=== PATIENT | female | born 1965 | race Caucasian/White ===

== ENCOUNTER 2016-04-30 17:29 | Inpatient (IN) | payer OTHER ==
[~2016-04-30] VITALS: Ht 157.4 cm; Wt 132.3 kg
--- NOTE | ~2016-04-30 | WRIGHTHP ---
[place], [place] PATIENT HISTORY AND PHYSICAL EXAM NAME: JEREMIAH PEARSON [facility] #: [id number] UNIT #: [id number] ROOM: 402 DOCTOR: OBED MEEHAN MD BIRTHDATE: [birth year] DOS: The patient was admitted to hospital with a history of acute difficulty in breathing and cough. She is a 50-year-old female who came to emergency department with increasing shortness of breath and cough and nasal congestion, and the patient was treating as outpatient with antibiotic. She went to visit emergency department at [facility] and was put on Zithromax but instead of feeling better, the patient was feeling worse. So, she came to the emergency department where on investigation, was found to be having pneumonia with acute respiratory difficulty and needed to be admitted to the hospital. The patient has previous history of cardiac catheterization and history of atherosclerotic heart disease. 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 MEDICATIONS: The patient is taking following medications at present, Paxil 10 mg daily, carvedilol (Coreg) 12.5 mg twice daily, Lasix 40 mg daily, Zestril 10 mg daily, Prilosec 40 mg daily, Zithromax 250 mg daily, aerosol treatment with albuterol 2 puffs q.4 hours p.r.n. and lithium carbonate 300 mg twice daily, Ativan 0.5 mg p.r.n. and Lipitor 10 mg daily. PHYSICAL EXAMINATION GENERAL: The patient is conscious, alert, and oriented. VITAL SIGNS: She is 5 foot 2 inches tall, weighing 285 pounds, her body mass is 56, and blood pressure is 126/64, pulse 70, respirations 16, temperature 97.9. HEENT: She is having some congestion of nose and throat. Ears are normal. Trachea central. NECK: Veins are not distended. HEART: Regular. No murmur or thrills. LUNGS: Showing bilateral wheezing with some crepitation. ABDOMEN: Soft. Liver and spleen not palpable. No area of tenderness. No mass palpable. LABORATORY DATA: CBC showed white count 8900, hemoglobin 11.9, and hematocrit 37.5. Comprehensive metabolic profile showed glucose 121 and GFR 59; other values are normal. Chest x-ray shows nodular interstitial infiltrate in the right mid to upper lung zone laterally, new from the previous study; appearance of this infiltrate is not typical of usual bacterial pneumonia, but rather atypical pneumonitis. CBC today shows white count 7600, hemoglobin 11.4, and hematocrit 37.2. Basic metabolic profile showed glucose 229; other values are normal. DIAGNOSES: Noted interstitial pneumonia of the right upper and mid lobe, acute bronchitis, hypertension and depression, gastroesophageal reflux disease syndrome, massive obesity, hyperlipidemia. [place], [place] PATIENT HISTORY AND PHYSICAL EXAM [id number] UNIT #: [id number] ROOM: [facility] DOCTOR: OBED MEEHAN MD BIRTHDATE: [birth year] OBED MEEHAN MD CM:HISPHYS:PATIENT HISTORY AND PHYSICAL EXAMINATION [id number] [id number] OBED MEEHAN MD 06/09/16 1317 interface
--- NOTE | ~2016-04-30 | PR ---
[place], [place] PROGRESS NOTE NAME: JEREMIAH PEARSON UNIT #: [id number] ROOM: 402 DOCTOR: OBED MEEHAN MD BIRTHDATE: [birth year] DOS: 05/07/2016 SUBJECTIVE: The patient has been admitted to the hospital with Legionella pneumonia and she is feeling better. She is being discharged today home. OBJECTIVE: VITAL SIGNS: Blood pressure 132/78, pulse 65, respirations 22, temperature 97.9. CHEST: Has an occasional wheeze. HEART: Regular. ABDOMEN: Soft. The patient is feeling good. She will be followed up by Dr. Escobedo in the office on Monday. OBED MEEHAN MD CM:PNTRANS [id number] OBED MEEHAN MD 06/09/16 1318 interface
[~2016-04-30 17:29] MED LIST: ACETAMINOPHEN500 M1 PO; ALBUTEROL0.09 MG/A2 INH; ANAPROX DS550 MG PO; ATIVAN0.5 MG PO; BACTRIM DS 8001 TA1 PO; CARAFATE1 G1 PO; CARVEDILOL25 MG PO; CEFTIN500 MG PO; CIPRO500 MG PO; CIPRODEX 0.3%-7.5 ML OT; CIPROFLOXACIN500 MG PO; CLARITIN-D 12 H1 TAB PO; CLARITIN10 MG PO; COREG12.5 MG PO; COREG25 MG PO; COUGH & COLD1 TAB; COUGH PO; CYCLOBENZAPRINE10 MG PO; FIORICET 325 MG1 TAB PO; FLAGYL 500 MG500 MG IV; FLAGYL500 MG PO; FLEXERIL10 MG PO; FUROSEMIDE40 MG PO; Flagyl500 MG PO; HYDROCODONE BIT1 T11 PO; KEFLEX500 MG PO; LAMICTAL200 MG PO; LAMOTRIGINE200 MG PO; LASIX40 MG PO; LEVAQUIN750 MG PO; LEVOFLOXACIN500 MG PO; LITHATE5 M1 PO; LITHIUM CARBON300 MG PO; MEDROL DOSEPAK4 MG PO; PAROXETIN10 MG PO; PAROXETINE HCL10 MG PO; PAXIL10 MG PO; PERCOCET 325 MG1 TA2 PO; PHENERGAN25 M1 PO; PHENERGAN25 MG RC; PREDNICOT20 MG PO; PREDNISONE10 MG PO; PREVACID30 M1; PREVACID30 M1 PO; PRILOSEC40 MG PO; RHINOCORT0.032 MG/1 NS; ROXICODONE5 MG PO; STOOL SOFTENER100 MG PO; SYMBICORT1 AE1 INH; TRIMOX500 MG PO; TYLENOL325 M1 PO; TYLENOL500 MG PO; ULTRAM50 MG PO; VENTOLIN H0.09 MG/AC INH; VICO10300 PO; VOLTAREN50 M1 PO; ZESTRIL5 MG PO; ZITHROMAX Z PA250 MG PO; ZOFRAN ODT4 MG SL; Zofran4 MG PO; [UNRECOGNIZED DRUG - OTHER]
[2016-04-30 17:36] VITALS: BP 150/79
[2016-04-30] MEDS ORDERED: ZITHROMAX250 MG PO (17:36)
[2016-04-30] MEDS ORDERED: VENTOLIN H0.09 MG/AC INH (17:37)
[2016-04-30] MEDS ORDERED: BENZONATATE200 MG PO (17:38)
[2016-04-30] MEDS ORDERED: LITHIUM CARB300 MG PO (17:39)
[2016-04-30] MEDS ORDERED: ATIVAN0.5 MG PO (17:40)
[2016-04-30] MEDS ORDERED: ATORVASTATIN CA10 M1 PO (17:40)
[2016-04-30 18:08] LABS: BASO % 0.3 % (0.0-1.0); EOS # 0.2 10*3/uL (0.0-0.4); EOS % 1.9 % (1.0-4.0); HEMATOCRIT 37.5 % (37.0-47.0); HEMOGLOBIN 11.9 g/dl (12.0-16.0); IG # 0.1 10*3/uL (0.0-0.1); LYMPH # 1.3 10*3/uL (1.3-4.4); LYMPH % 14.6 % (27.0-41.0); MEAN CELL VOLUME 81.5 fl (81.0-99.0); MEAN CORPUSCULAR HGB 25.9 pg (27.0-31.0); MEAN CORPUSCULAR HGB CONC 31.7 g/dl (33.0-37.0); MEAN PLATELET VOLUME 9.2 fl (9.6-12.3); MONO # 0.8 10*3/uL (0.1-1.0); MONO % 8.5 % (3.0-9.0); NEUT # 6.6 10*3/uL (2.3-7.9); PLATELET COUNT AUTOMATED 280 10*3/uL (130-400); RED CELL DISTRI WIDTH 14.1 % (0-14.5); WHITE BLOOD COUNT 8.9 10*3/uL (4.8-10.8)
[2016-04-30 18:25] LABS: ALBUMIN 3.6 gm/dl (3.1-4.5); ALKALINE PHOSPHATASE 81 U/L (45-117); BILIRUBIN, TOTAL 0.6 mg/dl (0.2-1.0); BUN 11 mg/dl (7-24); CARBON DIOXIDE 28 mmol/L (21-32); CHLORIDE 105 mmol/L (98-107); EST GLOM FILT AFRICAN AMERICAN > 60 ml/min; GLUCOSE 121 mg/dL (65-99); SGOT/AST 22 IU/L (3-35); SGPT/ALT 32 U/L (12-78); SODIUM 140 mmol/L (136-145); TOTAL PROTEIN 7.6 gm/dL (6.4-8.2)
[2016-04-30 19:11] VITALS: BP 148/90
[2016-04-30 20:15] VITALS: BP 148/80
[2016-04-30] MEDS ORDERED: LITHIUM CARBON300 MG PO (21:43)
[2016-05-01] VITALS: BP 107/58
[2016-05-01 07:35] LABS: BASO % 0.3 % (0.0-1.0); HEMATOCRIT 37.2 % (37.0-47.0); HEMOGLOBIN 11.4 g/dl (12.0-16.0); IG # 0.1 10*3/uL (0.0-0.1); LYMPH # 0.9 10*3/uL (1.3-4.4); LYMPH % 11.2 % (27.0-41.0); MEAN CELL VOLUME 83.6 fl (81.0-99.0); MEAN CORPUSCULAR HGB 25.6 pg (27.0-31.0); MEAN CORPUSCULAR HGB CONC 30.6 g/dl (33.0-37.0); MEAN PLATELET VOLUME 9.9 fl (9.6-12.3); MONO # 0.2 10*3/uL (0.1-1.0); MONO % 2.2 % (3.0-9.0); NEUT # 6.4 10*3/uL (2.3-7.9); PLATELET COUNT AUTOMATED 248 10*3/uL (130-400); RED BLOOD COUNT 4.45 10*6/uL (4.10-5.10); RED CELL DISTRI WIDTH 14.1 % (0-14.5); WHITE BLOOD COUNT 7.6 10*3/uL (4.8-10.8)
[2016-05-01 07:55] LABS: BUN 14 mg/dl (7-24); CARBON DIOXIDE 26 mmol/L (21-32); CHLORIDE 106 mmol/L (98-107); EST GLOM FILT AFRICAN AMERICAN > 60 ml/min; GLUCOSE 229 mg/dL (65-99); POTASSIUM 4.4 mmol/L (3.5-5.1); SODIUM 140 mmol/L (136-145)
[2016-05-01 08:00] VITALS: BP 126/64
[2016-05-01 16:00] VITALS: BP 116/60
[2016-05-01 20:00] VITALS: BP 129/78
[2016-05-02] VITALS: BP 132/66
[2016-05-02 08:00] VITALS: BP 126/70
[2016-05-02 16:00] VITALS: BP 150/70
[2016-05-02 20:00] VITALS: BP 139/75
[2016-05-03] VITALS: BP 112/64
[2016-05-03 06:13] LABS: ALBUMIN 3.3 gm/dl (3.1-4.5); ALKALINE PHOSPHATASE 63 U/L (45-117); BILIRUBIN, TOTAL 0.4 mg/dl (0.2-1.0); CARBON DIOXIDE 27 mmol/L (21-32); CHLORIDE 103 mmol/L (98-107); EST GLOM FILT AFRICAN AMERICAN > 60 ml/min; GLUCOSE 282 mg/dL (65-99); POTASSIUM 4.6 mmol/L (3.5-5.1); SGOT/AST 10 IU/L (3-35); SGPT/ALT 23 U/L (12-78); SODIUM 139 mmol/L (136-145); TOTAL PROTEIN 7.3 gm/dL (6.4-8.2)
[2016-05-03 06:14] LABS: BUN 25 mg/dl (7-24)
[2016-05-03 06:20] LABS: BASO % 0.2 % (0.0-1.0); HEMATOCRIT 37.3 % (37.0-47.0); HEMOGLOBIN 11.3 g/dl (12.0-16.0); IG # 0.2 10*3/uL (0.0-0.1); LYMPH # 1.3 10*3/uL (1.3-4.4); LYMPH % 11.9 % (27.0-41.0); MEAN CELL VOLUME 83.1 fl (81.0-99.0); MEAN CORPUSCULAR HGB 25.2 pg (27.0-31.0); MEAN CORPUSCULAR HGB CONC 30.3 g/dl (33.0-37.0); MEAN PLATELET VOLUME 9.8 fl (9.6-12.3); MONO # 0.3 10*3/uL (0.1-1.0); MONO % 2.5 % (3.0-9.0); NEUT # 9.1 10*3/uL (2.3-7.9); NEUT % 83.3 % (47.0-73.0); PLATELET COUNT AUTOMATED 300 10*3/uL (130-400); RED BLOOD COUNT 4.49 10*6/uL (4.10-5.10); RED CELL DISTRI WIDTH 13.9 % (0-14.5); WHITE BLOOD COUNT 10.9 10*3/uL (4.8-10.8)
[2016-05-03 08:00] VITALS: BP 112/68
[2016-05-03 09:43] LABS: BILIRUBIN NEGATIVE (NEGATIVE); BLOOD NEGATIVE (NEGATIVE); CLARITY CLEAR (CLEAR); COLOR YELLOW (YELLOW); GLUCOSE 1+ (NEGATIVE); KETONE NEGATIVE (NEGATIVE); LEUKO ESTERASE NEGATIVE (NEGATIVE); NITRITE NEGATIVE (NEGATIVE); PROTEIN NEGATIVE (NEGATIVE); SPECIFIC GRAVITY 1.015 (1.005-1.030); UROBILINOGEN 0.2 E.U./dl (0.2-1.0)
[2016-05-03 09:51] LABS: BACTERIA TRACE; URINE REFLEX COMMENT NO (NO)
[2016-05-03 16:00] VITALS: BP 156/84
[2016-05-03 20:56] VITALS: BP 123/72
[2016-05-04] VITALS: BP 113/58; BP 132/76
[2016-05-04 07:30] VITALS: BP 130/70
[2016-05-04 12:11] LABS: BILIRUBIN NEGATIVE (NEGATIVE); BLOOD NEGATIVE (NEGATIVE); CLARITY CLEAR (CLEAR); COLOR YELLOW (YELLOW); GLUCOSE 2+ (NEGATIVE); KETONE NEGATIVE (NEGATIVE); LEUKO ESTERASE NEGATIVE (NEGATIVE); NITRITE NEGATIVE (NEGATIVE); PROTEIN NEGATIVE (NEGATIVE); UROBILINOGEN 0.2 E.U./dl (0.2-1.0)
[2016-05-04 12:41] LABS: BACTERIA TRACE; RBC 0-2 rbc/hpf (0-2); URINE REFLEX COMMENT NO (NO)
[2016-05-04 16:00] VITALS: BP 142/83
[2016-05-05] VITALS: BP 149/75
[2016-05-05 08:00] VITALS: BP 136/70
[2016-05-05 10:20] LABS: HEMATOCRIT 36.9 % (37.0-47.0); MEAN CELL VOLUME 79.5 fl (81.0-99.0); MEAN CORPUSCULAR HGB 25.9 pg (27.0-31.0); MEAN CORPUSCULAR HGB CONC 32.5 g/dl (33.0-37.0); MEAN PLATELET VOLUME 9.2 fl (9.6-12.3); NUCLEATED RED BLOOD CELL 0.1 % (0.0-0.0); PLATELET COUNT AUTOMATED 350 10*3/uL (130-400); RED BLOOD COUNT 4.64 10*6/uL (4.10-5.10); RED CELL DISTRI WIDTH 13.8 % (0-14.5); WHITE BLOOD COUNT 15.3 10*3/uL (4.8-10.8)
[2016-05-05 10:47] LABS: ATYPICAL LYMPHS 1 % (0-0); LYMPHOCYTE # 4.9 10*3/uL (1.3-4.4); METAMYELOCYTES 2 % (0-0); MONOCYTE # 1.7 10*3/uL (0.1-1.0); MYELOCYTES 2 % (0-0); NEUTROPHIL # 8.1 10*3/uL (2.3-7.9); NEUTROPHILS 53 % (47-73); PLATELET SUFFICIENCY NORMAL (NORMAL); TOTAL CELLS COUNTED 100 #CELLS
[2016-05-05 11:02] LABS: BUN 29 mg/dl (7-24); CARBON DIOXIDE 29 mmol/L (21-32); CHLORIDE 100 mmol/L (98-107); EST GLOM FILT AFRICAN AMERICAN > 60 ml/min; GLUCOSE 244 mg/dL (65-99); POTASSIUM 3.7 mmol/L (3.5-5.1); SODIUM 137 mmol/L (136-145)
[2016-05-05 12:00] VITALS: BP 124/67
[2016-05-05 16:00] VITALS: BP 117/66
[2016-05-05 20:00] VITALS: BP 104/44
[2016-05-05 20:09] LABS: LEGIONELLA PNEUMOPHILA ABS <0.91 OD ratio (0.00-0.90)
[2016-05-06] VITALS: BP 108/55
[2016-05-06 07:38] LABS: HEMATOCRIT 39.3 % (37.0-47.0); HEMOGLOBIN 12.5 g/dl (12.0-16.0); MEAN CORPUSCULAR HGB 25.8 pg (27.0-31.0); MEAN CORPUSCULAR HGB CONC 31.8 g/dl (33.0-37.0); MEAN PLATELET VOLUME 9.9 fl (9.6-12.3); PLATELET COUNT AUTOMATED 305 10*3/uL (130-400); RED BLOOD COUNT 4.85 10*6/uL (4.10-5.10); WHITE BLOOD COUNT 14.1 10*3/uL (4.8-10.8)
[2016-05-06 08:00] VITALS: BP 136/66
[2016-05-06 08:03] LABS: LYMPHOCYTE # 1.1 10*3/uL (1.3-4.4); METAMYELOCYTES 1 % (0-0); MONOCYTE # 0.6 10*3/uL (0.1-1.0); MYELOCYTES 2 % (0-0); NEUTROPHILS 85 % (47-73); PLATELET SUFFICIENCY NORMAL (NORMAL); TOTAL CELLS COUNTED 100 #CELLS
[2016-05-06 08:11] LABS: BUN 25 mg/dl (7-24); CARBON DIOXIDE 29 mmol/L (21-32); CHLORIDE 99 mmol/L (98-107); EST GLOM FILT AFRICAN AMERICAN > 60 ml/min; GLUCOSE 281 mg/dL (65-99); POTASSIUM 4.5 mmol/L (3.5-5.1); SODIUM 137 mmol/L (136-145)
[2016-05-06] MEDS ORDERED: VENTOLIN H0.09 MG/AC INH (12:46)
[2016-05-06] MEDS ORDERED: MUCINEX ER600 MG PO (15:35)
[2016-05-06] MEDS ORDERED: AEROECLIPSE NEB1 DEV INH (15:35)
[2016-05-06] MEDS ORDERED: DUONEB 3 MG/3 ML3 M1 NEB (15:35)
[2016-05-06] MEDS ORDERED: AZITHROMYCIN500 M2 PO (15:35)
[2016-05-06] MEDS ORDERED: ASMANEX HF200 MCG/Ac INH (15:35)
[2016-05-06 16:00] VITALS: BP 130/76
[2016-05-07] VITALS: BP 96/58
[2016-05-07 00:03] LABS: PARAINFLUENZA 1 CF 1:16 (Neg:<1:8); PARAINFLUENZA 2 CF Negative (Neg:<1:8); PARAINFLUENZA 3 CF 1:32 (Neg:<1:8)
[2016-05-07 08:00] VITALS: BP 138/78
[2016-05-08 00:12] LABS: INFLUENZA B Negative (Negative); METAPNEUMOVIRUS Negative (Negative)
[2016-05-11 08:24] LABS: ORGANISM ID Not indicated. (.); SPECIMEN SOURCE Urine (.); STREPTOCOCCUS PNEUMONIAE AG Negative (Negative)
== END 2016-05-07 12:00 | disposition home or self-care (01) | DRG 177 ==
LOC: ED 17:29 → 4E 19:08 → EDHOLD 19:08 → 4E 19:40
PROVIDERS: Hospitalist; Internal Medicine; Internal Medicine Hospice and Palliative Medicine; Registered Nurse
PROC: 02HV33Z Insertion of Infusion Device into Superior Vena Cava, Percutaneous Approach (ICD-10-PCS; principal; 2016-05-05)
PROC: B5181ZA Fluoroscopy of Superior Vena Cava using Low Osmolar Contrast, Guidance (ICD-10-PCS; 2016-05-05)
DX: A48.1 Legionnaires' disease (principal); J96.21 Acute and chronic respiratory failure with hypoxia; K76.0 Fatty (change of) liver, not elsewhere classified; J44.0 Chronic obstructive pulmonary disease with (acute) lower respiratory infection; Z68.43 Body mass index [BMI] 50.0-59.9, adult; J44.1 Chronic obstructive pulmonary disease with (acute) exacerbation; K29.50 Unspecified chronic gastritis without bleeding; J20.9 Acute bronchitis, unspecified; I10 Essential (primary) hypertension; F32.9 Major depressive disorder, single episode, unspecified; K21.9 Gastro-esophageal reflux disease without esophagitis; E78.5 Hyperlipidemia, unspecified; K57.90 Diverticulosis of intestine, part unspecified, without perforation or abscess without bleeding; E66.01 Morbid (severe) obesity due to excess calories; D64.9 Anemia, unspecified; R73.9 Hyperglycemia, unspecified; Z88.1 Allergy status to other antibiotic agents; Z88.8 Allergy status to other drugs, medicaments and biological substances; Z91.09 Other allergy status, other than to drugs and biological substances; Z79.899 Other long term (current) drug therapy; Z82.49 Family history of ischemic heart disease and other diseases of the circulatory system; Z83.3 Family history of diabetes mellitus; Z82.3 Family history of stroke; Z90.710 Acquired absence of both cervix and uterus; Z83.6 Family history of other diseases of the respiratory system; Z98.890 Other specified postprocedural states

== ENCOUNTER → 2016-07-22 | Outpatient (CLI) | payer OTHER ==
[~2016-07-22] MED LIST changes: +AEROECLIPSE NEB1 DEV INH; +ASMANEX HF200 MCG/Ac INH; +ATORVASTATIN CA10 M1 PO; +AZITHROMYCIN500 M2 PO; +BENZONATATE200 MG PO; +DUONEB 3 MG/3 ML3 M1 NEB; +LITHIUM CARB300 MG PO; +MUCINEX ER600 MG PO; +ZITHROMAX250 MG PO
[2016-07-22 11:42] LABS: BASO # 0.1 10*3/uL (0.0-0.1); BASO % 0.5 % (0.0-1.0); EOS # 0.3 10*3/uL (0.0-0.4); EOS % 2.6 % (1.0-4.0); HEMATOCRIT 38.5 % (37.0-47.0); HEMOGLOBIN 12.2 g/dl (12.0-16.0); IG # 0.1 10*3/uL (0.0-0.1); LYMPH % 20.1 % (27.0-41.0); MEAN CELL VOLUME 81.4 fl (81.0-99.0); MEAN CORPUSCULAR HGB 25.8 pg (27.0-31.0); MEAN CORPUSCULAR HGB CONC 31.7 g/dl (33.0-37.0); MEAN PLATELET VOLUME 9.3 fl (9.6-12.3); MONO # 0.5 10*3/uL (0.1-1.0); MONO % 4.9 % (3.0-9.0); NEUT # 7.1 10*3/uL (2.3-7.9); NEUT % 71.4 % (47.0-73.0); PLATELET COUNT AUTOMATED 314 10*3/uL (130-400); RED BLOOD COUNT 4.73 10*6/uL (4.10-5.10); RED CELL DISTRI WIDTH 15.2 % (0-14.5); WHITE BLOOD COUNT 9.9 10*3/uL (4.8-10.8)
== END | disposition home or self-care (01) ==
LOC: LAB 11:17
PROVIDERS: Internal Medicine
DX: Z01.818 Encounter for other preprocedural examination (principal); D69.3 Immune thrombocytopenic purpura; I82.409 Acute embolism and thrombosis of unspecified deep veins of unspecified lower extremity; J45.909 Unspecified asthma, uncomplicated; E11.9 Type 2 diabetes mellitus without complications; I10 Essential (primary) hypertension; Z79.899 Other long term (current) drug therapy; Z95.810 Presence of automatic (implantable) cardiac defibrillator

== ENCOUNTER → 2017-02-05 | Outpatient (CLI) | payer OTHER ==
[2017-02-05 09:26] LABS: BASO # 0.1 10*3/uL (0.0-0.1); BASO % 0.5 % (0.0-1.0); EOS # 0.2 10*3/uL (0.0-0.4); EOS % 2.3 % (1.0-4.0); HEMATOCRIT 36.1 % (37.0-47.0); HEMOGLOBIN 11.4 g/dl (12.0-16.0); LYMPH # 1.7 10*3/uL (1.3-4.4); LYMPH % 18.2 % (27.0-41.0); MEAN CORPUSCULAR HGB 24.3 pg (27.0-31.0); MEAN CORPUSCULAR HGB CONC 31.6 g/dl (33.0-37.0); MEAN PLATELET VOLUME 9.7 fl (9.6-12.3); MONO # 0.5 10*3/uL (0.1-1.0); MONO % 5.4 % (3.0-9.0); NEUT # 6.9 10*3/uL (2.3-7.9); NEUT % 73.2 % (47.0-73.0); PLATELET COUNT AUTOMATED 312 10*3/uL (130-400); RED BLOOD COUNT 4.69 10*6/uL (4.10-5.10); RED CELL DISTRI WIDTH 15.8 % (0-14.5); WHITE BLOOD COUNT 9.4 10*3/uL (4.8-10.8)
[2017-02-05 09:48] LABS: ALBUMIN 3.6 gm/dl (3.1-4.5); ALKALINE PHOSPHATASE 70 U/L (45-117); BILIRUBIN, DIRECT 0.1 mg/dL (0.0-0.2); BUN 13 mg/dl (7-24); CHLORIDE 105 mmol/L (98-107); CHOLESTEROL 148 mg/dL (<200); CREATININE 0.88 mg/dL (0.55-1.02); FREE T4 1.14 ng/dl (0.76-1.46); HDL CHOLESTEROL 41 mg/dl (40-60); LDL CHOLESTEROL 57 mg/dL (9-159); POTASSIUM 4.3 mmol/L (3.5-5.1); SGOT/AST 14 IU/L (3-35); SGPT/ALT 31 U/L (12-78); SODIUM 139 mmol/L (136-145); T3 UPTAKE 35 % (31-39); TOTAL PROTEIN 7.5 gm/dL (6.4-8.2); TRIGLYCERIDES 252 mg/dl (<150); VLDL CHOLESTEROL 50 mg/dL (6-40)
== END | disposition home or self-care (01) ==
LOC: LAB 08:46
PROVIDERS: Internal Medicine
DX: J45.909 Unspecified asthma, uncomplicated (principal); E55.9 Vitamin D deficiency, unspecified; Z79.899 Other long term (current) drug therapy; Z95.0 Presence of cardiac pacemaker

== ENCOUNTER 2017-04-01 11:39 | Emergency (ER) | payer OTHER ==
[2017-04-01 11:47] VITALS: BP 160/100
[2017-04-01] MEDS ORDERED: CLARITIN10 MG PO (15:01)
[2017-04-01] MEDS ORDERED: PREDNISONE10 MG PO (15:01)
[2017-04-01] MEDS ORDERED: FLONASE ALLERG9.9 ML NAS (15:01)
[2017-04-01] MEDS ORDERED: ROBITUSSIN DM 105 ML PO (15:01)
[2017-04-01] MEDS ORDERED: Tobrex Ophth S2.5 ML OPH (15:01)
== END 2017-04-01 15:10 | disposition home or self-care (01) ==
LOC: ED 11:39
DX: J20.9 Acute bronchitis, unspecified (principal); J44.9 Chronic obstructive pulmonary disease, unspecified; I10 Essential (primary) hypertension; K21.9 Gastro-esophageal reflux disease without esophagitis; E66.01 Morbid (severe) obesity due to excess calories; Z68.43 Body mass index [BMI] 50.0-59.9, adult; Z98.890 Other specified postprocedural states; Z90.710 Acquired absence of both cervix and uterus; Z79.899 Other long term (current) drug therapy; Z88.1 Allergy status to other antibiotic agents; Z88.7 Allergy status to serum and vaccine

== ENCOUNTER 2017-05-06 01:00 | Emergency (ER) | payer OTHER ==
[~2017-05-06] VITALS: Ht 157.4 cm; Wt 127.0 kg
[~2017-05-06 01:00] MED LIST changes: +FLONASE ALLERG9.9 ML NAS; +ROBITUSSIN DM 105 ML PO; +Tobrex Ophth S2.5 ML OPH
[2017-05-06 01:06] VITALS: BP 156/81
[2017-05-06 01:49] LABS: BASO % 0.3 % (0.0-1.0); EOS # 0.3 10*3/uL (0.0-0.4); EOS % 2.8 % (1.0-4.0); HEMATOCRIT 34.8 % (37.0-47.0); HEMOGLOBIN 10.8 g/dl (12.0-16.0); LYMPH # 2.3 10*3/uL (1.3-4.4); MEAN CELL VOLUME 77.5 fl (81.0-99.0); MEAN CORPUSCULAR HGB 24.1 pg (27.0-31.0); MEAN PLATELET VOLUME 9.1 fl (9.6-12.3); MONO # 0.8 10*3/uL (0.1-1.0); MONO % 7.9 % (3.0-9.0); NEUT # 6.2 10*3/uL (2.3-7.9); NEUT % 64.5 % (47.0-73.0); PLATELET COUNT AUTOMATED 241 10*3/uL (130-400); RED BLOOD COUNT 4.49 10*6/uL (4.10-5.10); RED CELL DISTRI WIDTH 15.3 % (0-14.5); WHITE BLOOD COUNT 9.6 10*3/uL (4.8-10.8)
[2017-05-06 02:05] LABS: ALBUMIN 3.5 gm/dl (3.1-4.5); ALKALINE PHOSPHATASE 71 U/L (45-117); BUN 15 mg/dl (7-24); CHLORIDE 107 mmol/L (98-107); CREATININE 0.98 mg/dL (0.55-1.02); POTASSIUM 4.4 mmol/L (3.5-5.1); SGOT/AST 13 IU/L (3-35); SGPT/ALT 26 U/L (12-78); SODIUM 143 mmol/L (136-145)
[2017-05-06] MEDS ORDERED: CLARITIN10 MG PO (03:47)
[2017-05-06] MEDS ORDERED: Zofran4 MG PO (03:47)
== END 2017-05-06 03:45 | disposition home or self-care (01) ==
LOC: ED 01:00
PROVIDERS: Emergency Medicine
DX: R09.81 Nasal congestion (principal); E11.9 Type 2 diabetes mellitus without complications; J44.9 Chronic obstructive pulmonary disease, unspecified; I10 Essential (primary) hypertension; K21.9 Gastro-esophageal reflux disease without esophagitis; E66.01 Morbid (severe) obesity due to excess calories; Z68.43 Body mass index [BMI] 50.0-59.9, adult; Z79.899 Other long term (current) drug therapy; Z88.1 Allergy status to other antibiotic agents; Z98.890 Other specified postprocedural states; Z90.710 Acquired absence of both cervix and uterus; Z87.01 Personal history of pneumonia (recurrent); Z88.8 Allergy status to other drugs, medicaments and biological substances

== ENCOUNTER → 2017-05-17 | Outpatient (CLI) | payer OTHER | END | disposition home or self-care (01) | LOC: RAD 13:35 | DX: R07.89 Other chest pain (principal) ==

== ENCOUNTER 2017-06-22 13:27 | Inpatient (IN) | payer OTHER ==
[~2017-06-22] VITALS: Ht 157.4 cm; Wt 128.0 kg
--- NOTE | ~2017-06-22 | CON ---
[place], [place] REPORT OF CONSULTATION NAME: JEREMIAH PEARSON UNIT #: [id number] ROOM: 404 DOCTOR: RAGHU QUIÑONEZ MDMADONNA BIRTHDATE: [birth year] DOS: 06/24/2017 PULMONARY CONSULTATION, EVALUATION, AND MANAGEMENT CONSULTATION REQUESTED BY: Lance Escobedo MD. REASON FOR CONSULTATION: To assess the patient's ongoing current acute respiratory complaints for bronchial asthma exacerbation with a cough. HISTORY OF PRESENT ILLNESS: This is a 52-year-old white female with past history of bronchial asthma and COPD presented to the hospital. The patient has been noted shortness of breath and other respiratory symptoms for the past couple of weeks. The symptoms have been noted gradually progressive, not responding to outpatient treatment. She has taken the antibiotics previously. She has been noted with severe cough, which has been noted episodic, not resolving with current medications. The cough has been noted mostly nonproductive, sometimes sputum expectoration yellowish in color reported. She denies symptoms of hemoptysis. Denies symptoms of acute chest pain. Some chest pain related to current cough. She was also noted symptoms of wheezing and shortness of breath with mild exertion. REVIEW OF SYSTEMS: CONSTITUTIONAL SYMPTOMS: Fatigue and tiredness reported. Incentive fever or chills. EYES: Denies any burning, redness, or tenderness. EARS, NOSE, AND THROAT SYMPTOMS: No sore throat, hoarseness, otalgia, postnasal drainage, or epistaxis. CARDIOVASCULAR SYSTEM: Denies anginal pain, edema, and pain in lower extremities. GASTROINTESTINAL: Denies dysphagia, nausea, vomiting, diarrhea, abdominal pain, hematemesis, melena, or hematochezia. History of chronic severe morbid obesity without any recent abnormal weight loss history. GENITOURINARY SYMPTOMS: No dysuria, suprapubic pain, or hematuria. MUSCULOSKELETAL SYMPTOMS: Denies any acute joint pain, redness, or tenderness. CENTRAL NERVOUS SYSTEM: Denies any dizziness, headache, diplopia, syncopal episodes, or seizures. Remaining systems were reviewed with the patient and they were noted all negative. PAST MEDICAL HISTORY: 1. Diagnoses of COPD and bronchial asthma. 2. Diverticulosis. 3. Type 2 diabetes mellitus with a past history of diabetic ketoacidosis. 4. Essential hypertension. 5. Nonalcoholic fatty liver. 6. History of gastritis or gastroesophageal reflux. 7. Morbid obesity, BMI 50 or greater. 8. Past history of pancreatitis. PAST SURGICAL HISTORY: [place], [place] REPORT OF CONSULTATION NAME: JEREMIAH PEARSON UNIT #: [id number] ROOM: [facility] DOCTOR: MADONNA FLOWER MD BIRTHDATE: [birth year] 1. Partial bowel resection for the medical management of diverticulitis. 2. Therapeutic bronchoscopy that was done for about 12 years ago. 3. Carpal tunnel surgery. 4. Chronic aspiration. 5. . 6. Hysterectomy. SOCIAL HISTORY: The patient lives at home. She has been noted with no past tobacco use, but has been noted with exposure to the tobacco products at home. She has 2 children. FAMILY HISTORY: The patient's mother with history of ovarian cancer and COPD, already passed. Father of complication related to the diabetes mellitus, hyperlipidemia, and hypertension. HOME MEDICATIONS: Listed use of Ventolin HFA inhaler, Lipitor, Coreg, DuoNeb, Lamictal, lisinopril, lithium, metformin, Asmanex, omeprazole, and Paxil. DRUG ALLERGIES: NOTED ALLERGY TO THE 1. CIPROFLOXACIN. 2. IGA REPORTED. PHYSICAL EXAMINATION: GENERAL: This is a 52-year-old female, who has been currently noted comfortably, sitting on the bed, were noted intermittent and nonproductive cough episodic, lasting several seconds. Height of 5 feet 2 inches, weight of 280 pounds, and BMI 51.2. VITAL SIGNS: Temperature noted 100.5 degrees Fahrenheit on admission, later noted normal, the respiratory rate 20-24, heart rate of 104-82, and the blood pressure of 135/76-131/59 in the last 24 hours. Pulse oxygen saturation on room air is 94% saturation. HEENT: On examination, head was atraumatic. Eyes nonicterus. Severe decreased posterior pharyngeal space. Oral mucosa is moist. CARDIOVASCULAR: S1, S2 is audible. LUNGS: The patient was noted with [id number] reduction in the breath sounds, which were noted in the lungs. Expiratory wheezing noted diffusely in the lungs bilaterally. ABDOMEN: Soft with morbid obesity. Bowel sounds present, it was noted nontender. EXTREMITIES: Noted chronic severe obesity. VISIBLE SKIN: No lesions or rashes. MUSCULOSKELETAL: Without any deformities. CENTRAL NERVOUS SYSTEM: Cranial nerves 2-12 intact. LABORATORY DATA: The labs reviewed for this admission, lactic acid on admission on 06/22/2017 was normal. The CBC on 06/22/2017, WBC count 16,000, hemoglobin 11.1, hematocrit 37.5, and platelet count was normal. The PT/INR noted on 06/22/2017 on admission normal. CMP on admission was noted as normal CMP. The influenza A and B, nasal washing antigen negative. The troponin for the patient noted minimally elevated, ranges between 0.049 to the highest of 0.62. CBC of [place], [place] REPORT OF CONSULTATION NAME: JEREMIAH PEARSON UNIT #: [id number] ROOM: 404 DOCTOR: RAGHU QUIÑONEZ MD,[facility] BIRTHDATE: [birth year] the patient yesterday was noted as normal WBC count. The troponin was also noted normal. CBC of this morning, the patient's WBC count 14.3, hemoglobin 10.8, hematocrit 34.6, and platelet count 337,000. The blood culture on admission on 06/22/2017 showed no bacterial growth. Final culture results pending. Contrast echocardiogram that was done on 06/23/2017 noted normal left ventricular ejection fraction with grade 1 diastolic dysfunction and evidence of mild aortic stenosis with calculated aortic valve was described and reported as 1.8 cm2 with a maximum gradient pressure of 16 and a mean pressure gradient of 10. The chest x-ray of the patient that was done shows AICD noted in place with some widening of the mediastinum most likely related to the blood vessels. Left lower portion of the lung not noted very clear. There was no finding of overt significant congestive heart failure. IMPRESSION: 1. The patient has been noted with current progressive respiratory symptoms. The patient appeared to have acute exacerbation of bronchial asthma, acute bronchitis, and rule out pneumonia for further assessment. 2. The patient with the finding of aortic stenosis and other heart problems. The patient with AICD in place. 3. Severe morbid obesity. 4. Clinical suspicion of possible obstructive sleep apnea disorder as well. PLAN OF MANAGEMENT: The patient is currently getting the intravenous corticosteroids that will be continued as 80 mg q.8 hours, the dose will be decreased based on improvement of symptoms. Continue the Mucinex as well. Collect the sputum for Gram stain culture that was ordered. Continue DVT prophylaxis. The patient would be also ordered a chest x-ray that would be a PA lateral view. Most definitive assessment especially in the left lower lobe to exclude any pulmonary infiltration. Other supportive plan of management change based on the progression of the illness. Usual medical management and other therapies as well. MADONNA KRISHNAMURTHY MD CM:CONSTR:REPORT OF CONSULTATION 1252 06/25/17 0045 interface
--- NOTE | ~2017-06-22 | PR ---
[place], [place] PROGRESS NOTE NAME: [facility] [id number] UNIT #: [id number] ROOM: 404 DOCTOR: RAGHU QUIÑONEZ MD,MADONNA BIRTHDATE: [birth year] DOS: 06/26/2017 SUBJECTIVE: She has been noted comfortable at this time without any acute distress. The cough has been still noted significant and severe. The patient has not been able to expectorate much sputum most of the time, minimal sputum expectoration noted. The chest tightness has been improving. The shortness of breath has been slowly resolving, but not completely improved. Denies symptoms of hemoptysis, postnasal drainage or sore throat. Denies symptoms of headache, vomiting, diarrhea, or abdominal pain. The patient was reported with minimal edema of the lower extremities. The remaining systems were reviewed, they were noted all negative. OBJECTIVE: VITAL SIGNS: For the patient which has been recorded showed normal temperature, respiratory rate 20, heart rate 79, blood pressure 149/82. The pulse oxygen saturation on room air 96% saturation. HEENT: Examination shows no acute change. NECK: Supple. CARDIOVASCULAR: S1, S2 is audible. LUNGS: The patient was noted with moderate expiratory wheezing in the lung, remains unchanged in the past couple of days. There were no crackles. ABDOMEN: Soft, nontender and obese. There was no tenderness. EXTREMITIES: Noted minimal edema of the ankles. Visible skin, no lesions or rashes. MUSCULOSKELETAL: Without any acute deformities. SKIN: No lesions or rashes. CENTRAL NERVOUS SYSTEM: Cranial nerves 2-12 intact. There was no cross focal neurologic deficit. LABORATORY DATA: There were no labs done in the last 24 hours. IMPRESSION: 1. Persistent acute exacerbation of bronchial asthma with acute bronchitis for the patient with partial improvement noted other symptoms except the wheezing and the cough. The patient remains the same. 2. History of chronic obesity as well and acute clinical suspicion of obstructive sleep apnea disorder. 3. The patient's hyperglycemia second corticosteroid diabetes, uncontrolled with moderate increase of the blood glucose between 200 to 300. PLAN OF TREATMENT: Continuation of the bronchodilators, oxygen supplementation, and use of corticosteroids. Management of hyperglycemia and diabetic diet. The therapy of bronchoscopy was scheduled to be done tomorrow morning. The risks and the benefits of procedure have been discussed with the patient in detail. She was agreeable for the procedure. [place], [place] PROGRESS NOTE NAME: JEREMIAH PEARSON UNIT #: [id number] ROOM: 404 DOCTOR: MADONNA FLOWER MD BIRTHDATE: [birth year] MADONNA KRISHNAMURTHY MD CM:PNTRANS [id number] MADONNA QUIÑONEZ MD 06/26/17 1319 interface
--- NOTE | ~2017-06-22 | PR ---
[place], [place] PROGRESS NOTE NAME: JEREMIAH PEARSON UNIT #: [id number] ROOM: 404 DOCTOR: RAGHU QUIÑONEZ MD,MADONNA BIRTHDATE: [birth year] DOS: 06/29/2017 SUBJECTIVE: She has been noted much improved than the last one probably with improvement in symptoms of shortness breath, cough and noted minimal wheezing was also improved significantly. There were no symptoms of chest pain. She has been ambulating. She was also assessed for possible home oxygen supplementation noted without any oxygen desaturation and would not require any home oxygen. OBJECTIVE: VITAL SIGNS: Normal temperature, respiratory rate 20, heart rate 65, ____ . The pulse oxygen saturation on room air 94% saturation. HEENT: No new change. NECK: Supple. CARDIOVASCULAR: S1, S2 audible. LUNGS: The patient was noted clear of any wheezing or crackles. ABDOMEN: Soft, nontender. EXTREMITIES: Without any acute edema. IMPRESSION: Stable respiratory status was noted at the present time for this patient with progressive improvement in acute exacerbation of bronchial asthma and other illnesses. PLAN OF TREATMENT: The patient is noted currently ready for home discharge with tapering dose of prednisone. The antibiotics were used for the patient and others. MADONNA KRISHNAMURTHY MD CM:PNTRANS [id number] MADONNA QUIÑONEZ MD 06/29/172024 interface
--- NOTE | ~2017-06-22 | PR ---
[place], [place] PROGRESS NOTE NAME: JEREMIAH PEARSON [facility]: [id number] UNIT #: [id number] ROOM: 404 DOCTOR: OBED MEEHAN MD BIRTHDATE: [birth year] DOS: SUBJECTIVE: The patient has been admitted to hospital with pneumonitis with septicemia with acute difficulty in breathing and severe cough. She is also having COPD, tachycardia, acute respiratory failure, pyrexia, leukocytosis, hyperglycemia, tachypnea, fatty liver, GERD syndrome, essential hypertension, morbid obesity, and COPD. The patient is feeling somewhat better, but she is complaining of some swelling in her hands and feet. The patient was taking ____, but she is not taking now. I will start her on that. Her blood culture is negative. Her CBC showed white count 14,200, hemoglobin 10.8, hematocrit 34.6 indicating hypochromic anemia. Basic metabolic profile showed glucose 223 possibly because she is getting corticoid intravenously for her respiratory problem. Otherwise, fairly normal. OBJECTIVE: VITAL SIGNS: Her blood pressure 131/59, pulse 82, respirations 18, temperature 97.8. CHEST: Having bilateral wheezing with some crepitation. HEART: Regular. ABDOMEN: Soft. OBED MEEHAN MD CM:PNTRANS [phone] OBED MEEHAN MD 06/25/17 0431 interface
--- NOTE | ~2017-06-22 | PR ---
[place], [place] PROGRESS NOTE NAME: JEREMIAH PEARSON UNIT #: [id number] ROOM: 404 DOCTOR: RAGHU QUIÑONEZ MD,MADONNA BIRTHDATE: [birth year] DOS: 06/25/2017 SUBJECTIVE: She was still noted with severe cough with wheezing. The patient denies symptoms of acute chest pain. The sputum expectoration has been noted only small quantity. The patient denies symptoms of abdominal pain. Denies symptoms of nausea, vomiting, edema or pain of the lower extremities. General weakness and fatigue were reported. The appetite was noted without any changes. Remaining systems were reviewed and they were noted all negative. OBJECTIVE: VITAL SIGNS: For the patient, which was noted today and in the last 24 hours, the temperature remains normal, respiratory rate 18-22, heart rate 76-70, blood pressure 157/83 to 125/60. The pulse oxygen saturation for the patient was noted on 2 liters nasal cannula 96% saturation. HEENT: Examination shows chronic moderate severe obesity. NECK: Supple. HEAD: Atraumatic. CARDIOVASCULAR: S1, S2 audible. LUNGS: The patient was still noted with decreased breath sounds with moderate to severe expiratory wheezing. There were no crackles. ABDOMEN: Soft, nontender. It was obese. EXTREMITIES: Without any acute edema. SKIN: Visible skin, no lesions or rashes. MUSCULOSKELETAL: Without any acute deformities. CENTRAL NERVOUS SYSTEM: Cranial nerves 2-12 intact. There were no focal deficits. LABORATORY DATA: The patient's chest x-ray that was ordered yesterday did exclude pneumonia with PA lateral view, which was done yesterday. The chest x-ray personally reviewed. No other new labs were done today. IMPRESSION: 1. Ongoing severe acute exacerbation of bronchial asthma with severe acute tracheobronchitis, still continue to complain of significant nonproductive cough mostly. 2. The patient with severe morbid obesity history as well. Other medical illnesses of the patient as previously known. PLAN OF MANAGEMENT: Continuation of current dose of corticosteroids, bronchodilators, assess the patient for therapeutic bronchoscopy in the next couple of days depends on the progression of the illness. Usual care. All other supportive therapy, plan of management and care plan. Usual treatments. Continue with the bronchodilators, oxygen supplementation and others. [place], [place] PROGRESS NOTE NAME: JEREMIAH PEARSON UNIT #: [id number] ROOM: [facility] DOCTOR: MADONNA FLOWER MD BIRTHDATE: [birth year] MADONNA KRISHNAMURTHY MD CM:PNTRANS [id number] MADONNA QUIÑONEZ MD 06/25/17 1430 interface
--- NOTE | ~2017-06-22 | PR ---
[place], [place] PROGRESS NOTE NAME: JEREMIAH PEARSON UNIT #: [id number] ROOM: 404 DOCTOR: MADONNA FLOWER MD BIRTHDATE: [birth year] DOS: 06/28/2017 SUBJECTIVE: The patient was noted comfortable at this time without any distress. The coughing has improved significantly after bronchoscopy. Denies symptoms of chest pain or hemoptysis. Denies symptoms of nausea, vomiting or diarrhea. OBJECTIVE: VITAL SIGNS: For the patient which has been recorded shows the temperature noted as normal. The respiratory 20, heart rate 69, blood pressure 155/84-153/86. Pulse oxygen saturation was recorded as 94% saturation. On 2 liter nasal cannula. HEENT: Examination shows head was atraumatic. Eyes nonicterus. NECK: Supple. CARDIOVASCULAR: S1, S2 is audible. LUNGS: Noted with minimal wheezing, no crackles. ABDOMEN: Soft, nontender. EXTREMITIES: Without acute edema. LABORATORY DATA: Blood culture in the lab noted as completely negative from 06/22/2017. The Gram stain of the bronchial washing from yesterday, moderate white blood cells, moderate gram-positive cocci in pairs and budding yeast. The culture of the bronchial washing normal sreekanth preliminary final culture results remains pending. IMPRESSION: 1. The patient was occurring noted with a stable respiratory status. The patient with favorable improvement noted for this patient after bronchoscopy. Improvement in cough and wheezing as well as shortness of breath. PLAN OF TREATMENT: The patient was encouraged ambulation. Continue the steroids. The patient bronchodilators, oxygen supplementation, other plan of management and care. Usual care treatment and therapies. Supportive plan of management. [place], [place] PROGRESS NOTE NAME: JEREMIAH PEARSON UNIT #: [id number] ROOM: 404 DOCTOR: MADONNA FLOWER MD BIRTHDATE: [birth year] MADONNA KRISHNAMURTHY MD CM:PNTRANS [id number] MADONNA QUIÑONEZ MD 06/28/17 1612 interface
--- NOTE | ~2017-06-22 | PR ---
[place], [place] PROGRESS NOTE NAME: JEREMIAH PEARSON [facility] #: [id number] UNIT #: [id number] ROOM: 404 DOCTOR: OBED MEEHAN MD BIRTHDATE: [birth year] DOS: SUBJECTIVE: The patient has been admitted to hospital with pneumonitis with septicemia, difficulty breathing and severe cough: The patient is also having COPD for longtime, tachycardia, acute respiratory failure, pyrexia, leukocytosis, hyperglycemia, tachypnea, fatty liver, GERD syndrome, essential hypertension, morbid obesity and COPD. The patient is feeling somewhat better today. Her cough is slowly improving. There is no chest pain, but the patient still feels some wheezing. OBJECTIVE: VITAL SIGNS: Her blood pressure is 146/74, pulse 70, respirations 18, temperature 97.3. LABORATORY DATA: Her chest x-ray done shows no acute process. Blood culture did not grow any bacteria. ASSESSMENT: The patient is showing slow improvement. OBED MEEHAN MD CM:PNTRANS [id number] OBED MEEHAN MD 06/25/17 1457 interface
--- NOTE | ~2017-06-22 | PR ---
[place], [place] PROGRESS NOTE NAME: JEREMIAH PEARSON UNIT #: [id number] ROOM: 404 DOCTOR: MADONNA FLOWER MD BIRTHDATE: [birth year] DOS: 06/27/2017 SUBJECTIVE: The patient was n.p.o. past midnight and bronchoscopy planned for today, still noted severe cough, which remains all the time and not relieved with current medical management. She was continued treatment for the acute exacerbation of bronchial asthma. Denies symptoms of chest pain, shortness of breath occurred with exertion. General weakness, fatigue, persisted. Denies any changes in appetite. Denies symptoms of hemoptysis. Denies any edema or pain of the lower extremities. Remaining systems were reviewed. The patient, they were noted all negative. OBJECTIVE: VITAL SIGNS: For the patient which has been recorded showed normal temperature, respiratory rate 20, heart rate 87, blood pressure 147/102. Pulse oxygen saturation on 3 liter nasal cannula was recorded 95%, room air 89%. HEENT: Examination shows head was atraumatic. Eyes nonicterus. NECK: Supple. CARDIOVASCULAR: S1, S2 audible. LUNGS: Noted moderate decreased breath sounds. The patient had expiratory wheezing. There were no crackles heard. ABDOMEN: Soft and obese, nontender, bowel sounds present. EXTREMITIES: Noted chronic obesity with minimal ankle edema. SKIN: No lesions or rashes. MUSCULOSKELETAL: No acute deformities. LABORATORY DATA: CBC today: WBC count 12.8, remaining CBC was normal except platelet count mildly elevated at 129,000. BMP of the patient noted BUN 26, creatinine was normal, glucose 242. IMPRESSION: The patient who has been currently noted ongoing acute exacerbation of bronchial asthma at this time with the cough, suspected mucus impaction of the major airways not responding to current treatment maximal medical therapy. The patient remains significantly symptomatic with patient as well. PLAN OF TREATMENT: Bronchoscopy planned to be done today for the patient's further assessment of the cough. Continue the meantime current dose of corticosteroids, bronchodilators, antibiotics, and other therapies. Usual care, other supportive plan of management and care plan. [place], [place] PROGRESS NOTE NAME: JEREMIAH PEARSON UNIT #: [id number] ROOM: 404 DOCTOR: MADONNA FLOWER MD BIRTHDATE: [birth year] MADONNA KRISHNAMURTHY MD CM:PNSHARI [id number] [id number] MADONNA QUIÑONEZ MD 06/27/17 1734 interface
[2017-06-22 13:34] VITALS: BP 166/84
[2017-06-22] MEDS ORDERED: ASMANEX HFA13 GM INH (13:37)
[2017-06-22] MEDS ORDERED: METFORMIN HCL1000 MG PO (13:38)
[2017-06-22 14:24] LABS: BASO # 0.1 10*3/uL (0.0-0.1); BASO % 0.4 % (0.0-1.0); EOS # 0.2 10*3/uL (0.0-0.4); EOS % 1.2 % (1.0-4.0); HEMATOCRIT 37.5 % (37.0-47.0); HEMOGLOBIN 11.8 g/dl (12.0-16.0); LYMPH # 1.3 10*3/uL (1.3-4.4); LYMPH % 7.9 % (27.0-41.0); MEAN CORPUSCULAR HGB 24.5 pg (27.0-31.0); MEAN CORPUSCULAR HGB CONC 31.5 g/dl (33.0-37.0); MEAN PLATELET VOLUME 9.2 fl (9.6-12.3); MONO # 0.9 10*3/uL (0.1-1.0); MONO % 5.4 % (3.0-9.0); NEUT # 13.5 10*3/uL (2.3-7.9); NEUT % 84.6 % (47.0-73.0); PLATELET COUNT AUTOMATED 305 10*3/uL (130-400); RED BLOOD COUNT 4.81 10*6/uL (4.10-5.10); RED CELL DISTRI WIDTH 15.7 % (0-14.5)
[2017-06-22 14:38] VITALS: BP 132/75
[2017-06-22 14:38] LABS: ALBUMIN 3.7 gm/dl (3.1-4.5); ALKALINE PHOSPHATASE 73 U/L (45-117); BUN 9 mg/dl (7-24); CHLORIDE 109 mmol/L (98-107); CREATININE 0.84 mg/dL (0.55-1.02); POTASSIUM 4.3 mmol/L (3.5-5.1); SGOT/AST 22 IU/L (3-35); SGPT/ALT 36 U/L (12-78); SODIUM 141 mmol/L (136-145); TOTAL PROTEIN 7.8 gm/dL (6.4-8.2)
[2017-06-22 15:16] VITALS: BP 149/83
[2017-06-22 15:48] VITALS: BP 158/89
[2017-06-22 17:01] VITALS: BP 174/95
[2017-06-22 20:00] VITALS: BP 154/76
[2017-06-23] VITALS: BP 151/84
[2017-06-23 05:54] LABS: HEMATOCRIT 36.7 % (37.0-47.0); HEMOGLOBIN 11.2 g/dl (12.0-16.0); MEAN CELL VOLUME 79.4 fl (81.0-99.0); MEAN CORPUSCULAR HGB 24.2 pg (27.0-31.0); MEAN CORPUSCULAR HGB CONC 30.5 g/dl (33.0-37.0); MEAN PLATELET VOLUME 9.5 fl (9.6-12.3); PLATELET COUNT AUTOMATED 291 10*3/uL (130-400); RED BLOOD COUNT 4.62 10*6/uL (4.10-5.10); RED CELL DISTRI WIDTH 15.9 % (0-14.5); WHITE BLOOD COUNT 10.7 10*3/uL (4.8-10.8)
[2017-06-23 06:03] LABS: BUN 9 mg/dl (7-24); CHLORIDE 103 mmol/L (98-107); CREATININE 0.76 mg/dL (0.55-1.02); IRON 25 ug/dL (50-170); PHOSPHOROUS 3.9 mg/dL (2.5-4.9); POTASSIUM 4.4 mmol/L (3.5-5.1); SODIUM 138 mmol/L (136-145); TOTAL IRON BINDING CAPACITY 320 ug/dl (250-450)
[2017-06-23 06:04] LABS: TROPONIN I 0.041 ng/ml (<0.045)
[2017-06-23 06:09] LABS: THYROID STIM HORMONE (HS) 0.499 uIU/ml (0.358-4.75)
[2017-06-23 06:30] LABS: BASOPHILS 1 % (0-1); OVALOCYTES FEW; PLATELET SUFFICIENCY NORMAL (NORMAL); TOTAL CELLS COUNTED 100 #CELLS
[2017-06-23 07:24] LABS: FERRITIN 41.3 ng/mL (10.0-291.0); VITAMIN D, 25-HYDROXY 14.5 ng/mL (30-100)
[2017-06-23 08:00] VITALS: BP 135/76
[2017-06-23 12:00] VITALS: BP 158/85
[2017-06-23 16:00] VITALS: BP 166/87
[2017-06-23 20:00] VITALS: BP 148/71
[2017-06-24] VITALS: BP 153/62
[2017-06-24 06:16] LABS: HEMATOCRIT 34.6 % (37.0-47.0); HEMOGLOBIN 10.8 g/dl (12.0-16.0); MEAN CELL VOLUME 79.2 fl (81.0-99.0); MEAN CORPUSCULAR HGB 24.7 pg (27.0-31.0); MEAN CORPUSCULAR HGB CONC 31.2 g/dl (33.0-37.0); MEAN PLATELET VOLUME 9.5 fl (9.6-12.3); PLATELET COUNT AUTOMATED 337 10*3/uL (130-400); RED BLOOD COUNT 4.37 10*6/uL (4.10-5.10); RED CELL DISTRI WIDTH 15.8 % (0-14.5); WHITE BLOOD COUNT 14.2 10*3/uL (4.8-10.8)
[2017-06-24 06:43] LABS: BUN 15 mg/dl (7-24); CHLORIDE 104 mmol/L (98-107); CREATININE 0.71 mg/dL (0.55-1.02); POTASSIUM 5.1 mmol/L (3.5-5.1); SODIUM 138 mmol/L (136-145)
[2017-06-24 07:14] LABS: TOTAL CELLS COUNTED 100 #CELLS
[2017-06-24 07:15] LABS: PLATELET SUFFICIENCY NORMAL (NORMAL)
[2017-06-24 08:00] VITALS: BP 131/59
[2017-06-24 12:00] VITALS: BP 138/68
[2017-06-24 16:00] VITALS: BP 138/72
[2017-06-24 20:00] VITALS: BP 144/68
[2017-06-25] VITALS: BP 125/60
[2017-06-25 08:00] VITALS: BP 146/74
[2017-06-25 12:00] VITALS: BP 157/83
[2017-06-25 16:00] VITALS: BP 149/62
[2017-06-25 20:00] VITALS: BP 143/70
[2017-06-26] VITALS: BP 148/68
[2017-06-26 08:00] VITALS: BP 149/82
[2017-06-26 12:00] VITALS: BP 154/90
[2017-06-26 16:00] VITALS: BP 151/95
[2017-06-26 20:00] VITALS: BP 153/91
[2017-06-27] VITALS (9 sets, daily range): BP systolic 110–147; BP diastolic 58–102
[2017-06-27 05:53] LABS: BASO % 0.2 % (0.0-1.0); HEMATOCRIT 38.3 % (37.0-47.0); LYMPH # 1.3 10*3/uL (1.3-4.4); LYMPH % 10.4 % (27.0-41.0); MEAN CORPUSCULAR HGB 24.4 pg (27.0-31.0); MEAN CORPUSCULAR HGB CONC 31.3 g/dl (33.0-37.0); MEAN PLATELET VOLUME 9.6 fl (9.6-12.3); MONO # 0.8 10*3/uL (0.1-1.0); MONO % 5.9 % (3.0-9.0); NEUT # 10.4 10*3/uL (2.3-7.9); NEUT % 81.2 % (47.0-73.0); PLATELET COUNT AUTOMATED 429 10*3/uL (130-400); RED BLOOD COUNT 4.91 10*6/uL (4.10-5.10); RED CELL DISTRI WIDTH 15.7 % (0-14.5); WHITE BLOOD COUNT 12.8 10*3/uL (4.8-10.8)
[2017-06-27 06:08] LABS: BUN 26 mg/dl (7-24); CHLORIDE 101 mmol/L (98-107); CREATININE 0.91 mg/dL (0.55-1.02); POTASSIUM 4.5 mmol/L (3.5-5.1); SODIUM 136 mmol/L (136-145)
[2017-06-28] VITALS: BP 153/86
[2017-06-28 08:00] VITALS: BP 155/84
[2017-06-28 12:00] VITALS: BP 127/87
[2017-06-28 16:00] VITALS: BP 144/89
[2017-06-28 16:05] LABS: ACID FAST SPEC PROCESSING Concentration (.)
[2017-06-28 20:00] VITALS: BP 148/98
[2017-06-29] VITALS: BP 153/91
[2017-06-29 08:00] VITALS: BP 138/84
[2017-06-29] MEDS ORDERED: SLOW RELEASE I159 MG PO (10:09)
[2017-06-29] MEDS ORDERED: VITAMIN D-32000 UNIT PO (10:09)
[2017-06-29] MEDS ORDERED: PREDNISONE10 MG PO (10:09)
[2017-06-29] MEDS ORDERED: LASIX40 MG PO (10:29)
[2017-06-29] MEDS ORDERED: ACCUNEB 0.1.25 MG/1 INH (10:29)
[2017-06-29 12:00] VITALS: BP 133/82
== END 2017-06-29 13:45 | disposition home or self-care (01) | DRG 871 ==
LOC: ED 13:27 → 4E 16:15 → EDHOLD 16:15 → 4E 17:21
PROVIDERS: Internal Medicine; Internal Medicine Critical Care Medicine; Physician Assistant; Student in an Organized Health Care Education/Training Program
PROC: 05HY33Z Insertion of Infusion Device into Upper Vein, Percutaneous Approach (ICD-10-PCS; principal; 2017-06-23)
PROC: 0BJ08ZZ Inspection of Tracheobronchial Tree, Via Natural or Artificial Opening Endoscopic (ICD-10-PCS; 2017-06-27)
DX: A41.9 Sepsis, unspecified organism (principal); J18.9 Pneumonia, unspecified organism; J96.01 Acute respiratory failure with hypoxia; I21.A1 Myocardial infarction type 2; J44.0 Chronic obstructive pulmonary disease with (acute) lower respiratory infection; J45.901 Unspecified asthma with (acute) exacerbation; E66.01 Morbid (severe) obesity due to excess calories; E11.65 Type 2 diabetes mellitus with hyperglycemia; J44.1 Chronic obstructive pulmonary disease with (acute) exacerbation; Z68.43 Body mass index [BMI] 50.0-59.9, adult; E83.41 Hypermagnesemia; E87.8 Other disorders of electrolyte and fluid balance, not elsewhere classified; J20.9 Acute bronchitis, unspecified; D50.9 Iron deficiency anemia, unspecified; K21.9 Gastro-esophageal reflux disease without esophagitis; I10 Essential (primary) hypertension; K29.50 Unspecified chronic gastritis without bleeding; Z95.810 Presence of automatic (implantable) cardiac defibrillator; Z88.1 Allergy status to other antibiotic agents; Z88.8 Allergy status to other drugs, medicaments and biological substances; Z91.048 Other nonmedicinal substance allergy status; Z79.2 Long term (current) use of antibiotics; Z79.899 Other long term (current) drug therapy; Z79.84 Long term (current) use of oral hypoglycemic drugs; Z98.891 History of uterine scar from previous surgery; Z83.3 Family history of diabetes mellitus; Z82.49 Family history of ischemic heart disease and other diseases of the circulatory system; Z80.41 Family history of malignant neoplasm of ovary; Z82.3 Family history of stroke; Z83.6 Family history of other diseases of the respiratory system; Z90.710 Acquired absence of both cervix and uterus

== ENCOUNTER → 2017-09-06 | Outpatient (CLI) | payer OTHER ==
[~2017-09-06] MED LIST changes: +ACCUNEB 0.1.25 MG/1 INH; +ASMANEX HFA13 GM INH; +METFORMIN HCL1000 MG PO; +SLOW RELEASE I159 MG PO; +VITAMIN D-32000 UNIT PO
[2017-09-06 10:51] LABS: BASO # 0.1 10*3/uL (0.0-0.1); BASO % 0.7 % (0.0-1.0); EOS # 0.3 10*3/uL (0.0-0.4); HEMATOCRIT 37.7 % (37.0-47.0); HEMOGLOBIN 11.9 g/dl (12.0-16.0); LYMPH # 2.2 10*3/uL (1.3-4.4); LYMPH % 25.3 % (27.0-41.0); MEAN CELL VOLUME 83.6 fl (81.0-99.0); MEAN CORPUSCULAR HGB 26.4 pg (27.0-31.0); MEAN CORPUSCULAR HGB CONC 31.6 g/dl (33.0-37.0); MEAN PLATELET VOLUME 9.7 fl (9.6-12.3); MONO # 0.6 10*3/uL (0.1-1.0); MONO % 7.4 % (3.0-9.0); NEUT # 5.5 10*3/uL (2.3-7.9); PLATELET COUNT AUTOMATED 305 10*3/uL (130-400); RED BLOOD COUNT 4.51 10*6/uL (4.10-5.10); RED CELL DISTRI WIDTH 16.4 % (0-14.5); WHITE BLOOD COUNT 8.7 10*3/uL (4.8-10.8)
[2017-09-06 10:58] LABS: ALBUMIN 3.9 gm/dl (3.1-4.5); BILIRUBIN, DIRECT 0.2 mg/dL (0.0-0.2); TOTAL PROTEIN 7.3 gm/dL (6.4-8.2)
== END | disposition home or self-care (01) ==
LOC: LAB 10:11
PROVIDERS: Internal Medicine Critical Care Medicine
DX: Z51.81 Encounter for therapeutic drug level monitoring (principal); Z79.899 Other long term (current) drug therapy

== ENCOUNTER → 2017-10-11 | Outpatient (CLI) | payer OTHER ==
[2017-10-11 13:16] LABS: BASO # 0.1 10*3/uL (0.0-0.1); BASO % 0.6 % (0.0-1.0); EOS # 0.2 10*3/uL (0.0-0.4); EOS % 2.6 % (1.0-4.0); HEMATOCRIT 40.6 % (37.0-47.0); LYMPH % 21.8 % (27.0-41.0); MEAN CELL VOLUME 83.4 fl (81.0-99.0); MEAN CORPUSCULAR HGB 26.7 pg (27.0-31.0); MEAN PLATELET VOLUME 9.3 fl (9.6-12.3); MONO # 0.6 10*3/uL (0.1-1.0); MONO % 6.5 % (3.0-9.0); NEUT # 6.1 10*3/uL (2.3-7.9); NEUT % 67.9 % (47.0-73.0); PLATELET COUNT AUTOMATED 285 10*3/uL (130-400); RED BLOOD COUNT 4.87 10*6/uL (4.10-5.10); RED CELL DISTRI WIDTH 14.5 % (0-14.5)
[2017-10-11 13:35] LABS: BILIRUBIN, DIRECT 0.3 mg/dL (0.0-0.2); TOTAL PROTEIN 7.7 gm/dL (6.4-8.2)
== END | disposition home or self-care (01) ==
LOC: LAB 12:57
PROVIDERS: Internal Medicine Critical Care Medicine
DX: Z51.81 Encounter for therapeutic drug level monitoring (principal); Z79.899 Other long term (current) drug therapy

== ENCOUNTER → 2017-11-08 | Outpatient (CLI) | payer OTHER ==
[2017-11-08 13:52] LABS: BASO # 0.1 10*3/uL (0.0-0.1); BASO % 0.6 % (0.0-1.0); EOS # 0.3 10*3/uL (0.0-0.4); EOS % 3.3 % (1.0-4.0); HEMATOCRIT 40.7 % (37.0-47.0); HEMOGLOBIN 12.7 g/dl (12.0-16.0); LYMPH # 1.8 10*3/uL (1.3-4.4); LYMPH % 18.8 % (27.0-41.0); MEAN CORPUSCULAR HGB 26.5 pg (27.0-31.0); MEAN CORPUSCULAR HGB CONC 31.2 g/dl (33.0-37.0); MEAN PLATELET VOLUME 9.7 fl (9.6-12.3); MONO # 0.6 10*3/uL (0.1-1.0); MONO % 6.1 % (3.0-9.0); NEUT # 6.7 10*3/uL (2.3-7.9); NEUT % 70.5 % (47.0-73.0); PLATELET COUNT AUTOMATED 286 10*3/uL (130-400); RED BLOOD COUNT 4.79 10*6/uL (4.10-5.10); RED CELL DISTRI WIDTH 13.8 % (0-14.5); WHITE BLOOD COUNT 9.5 10*3/uL (4.8-10.8)
[2017-11-08 14:29] LABS: ALBUMIN 4.1 gm/dl (3.1-4.5); BILIRUBIN, DIRECT 0.2 mg/dL (0.0-0.2); TOTAL PROTEIN 7.7 gm/dL (6.4-8.2)
== END | disposition home or self-care (01) ==
LOC: LAB 12:42
PROVIDERS: Internal Medicine Critical Care Medicine
DX: Z79.899 Other long term (current) drug therapy (principal)

== ENCOUNTER → 2018-01-09 | Outpatient (CLI) | payer OTHER ==
[2018-01-09 19:19] LABS: BASO # 0.1 10*3/uL (0.0-0.1); BASO % 0.5 % (0.0-1.0); EOS # 0.3 10*3/uL (0.0-0.4); EOS % 2.8 % (1.0-4.0); HEMATOCRIT 38.4 % (37.0-47.0); HEMOGLOBIN 12.4 g/dl (12.0-16.0); LYMPH % 19.3 % (27.0-41.0); MEAN CELL VOLUME 85.7 fl (81.0-99.0); MEAN CORPUSCULAR HGB 27.7 pg (27.0-31.0); MEAN CORPUSCULAR HGB CONC 32.3 g/dl (33.0-37.0); MEAN PLATELET VOLUME 9.3 fl (9.6-12.3); MONO # 0.7 10*3/uL (0.1-1.0); NEUT # 7.1 10*3/uL (2.3-7.9); NEUT % 69.8 % (47.0-73.0); PLATELET COUNT AUTOMATED 298 10*3/uL (130-400); RED BLOOD COUNT 4.48 10*6/uL (4.10-5.10); RED CELL DISTRI WIDTH 14.6 % (0-14.5); WHITE BLOOD COUNT 10.2 10*3/uL (4.8-10.8)
[2018-01-09 19:35] LABS: ALKALINE PHOSPHATASE 58 U/L (45-117); BILIRUBIN, DIRECT < 0.1 mg/dL (0.0-0.2); SGOT/AST 12 IU/L (3-35); SGPT/ALT 31 U/L (12-78); TOTAL PROTEIN 7.4 gm/dL (6.4-8.2)
== END | disposition home or self-care (01) ==
LOC: LAB 18:50
PROVIDERS: Internal Medicine Critical Care Medicine
DX: Z51.81 Encounter for therapeutic drug level monitoring (principal); Z79.899 Other long term (current) drug therapy

== ENCOUNTER → 2018-02-14 | Outpatient (CLI) | payer OTHER ==
[2018-02-14 10:44] LABS: BASO # 0.1 10*3/uL (0.0-0.1); BASO % 0.8 % (0.0-1.0); EOS # 0.3 10*3/uL (0.0-0.4); EOS % 3.4 % (1.0-4.0); HEMOGLOBIN 12.5 g/dl (12.0-16.0); LYMPH # 2.1 10*3/uL (1.3-4.4); LYMPH % 23.6 % (27.0-41.0); MEAN CELL VOLUME 85.2 fl (81.0-99.0); MEAN CORPUSCULAR HGB CONC 32.9 g/dl (33.0-37.0); MONO # 0.7 10*3/uL (0.1-1.0); MONO % 7.8 % (3.0-9.0); NEUT # 5.6 10*3/uL (2.3-7.9); NEUT % 63.8 % (47.0-73.0); PLATELET COUNT AUTOMATED 173 10*3/uL (130-400); RED BLOOD COUNT 4.46 10*6/uL (4.10-5.10); WHITE BLOOD COUNT 8.8 10*3/uL (4.8-10.8)
[2018-02-14 11:21] LABS: ALBUMIN 3.8 gm/dl (3.1-4.5); BILIRUBIN, DIRECT 0.2 mg/dL (0.0-0.2); TOTAL PROTEIN 7.3 gm/dL (6.4-8.2)
== END | disposition home or self-care (01) ==
LOC: LAB 10:27
PROVIDERS: Internal Medicine Critical Care Medicine
DX: Z79.899 Other long term (current) drug therapy (principal)

== ENCOUNTER → 2018-03-29 | Outpatient (CLI) | payer OTHER | END | disposition home or self-care (01) | LOC: RAD 15:22 | DX: J98.11 Atelectasis (principal); J45.901 Unspecified asthma with (acute) exacerbation; J44.9 Chronic obstructive pulmonary disease, unspecified; J34.89 Other specified disorders of nose and nasal sinuses; R07.0 Pain in throat; H92.09 Otalgia, unspecified ear; Z95.0 Presence of cardiac pacemaker ==

== ENCOUNTER → 2018-04-16 | Outpatient (CLI) | payer OTHER ==
[2018-04-16 10:14] LABS: BASO % 0.5 % (0.0-1.0); EOS # 0.2 10*3/uL (0.0-0.4); EOS % 3.2 % (1.0-4.0); HEMOGLOBIN 11.7 g/dl (12.0-16.0); LYMPH # 1.5 10*3/uL (1.3-4.4); LYMPH % 21.9 % (27.0-41.0); MEAN CELL VOLUME 85.9 fl (81.0-99.0); MEAN CORPUSCULAR HGB 27.9 pg (27.0-31.0); MEAN CORPUSCULAR HGB CONC 32.5 g/dl (33.0-37.0); MEAN PLATELET VOLUME 9.2 fl (9.6-12.3); MONO # 0.3 10*3/uL (0.1-1.0); MONO % 4.4 % (3.0-9.0); NEUT # 4.6 10*3/uL (2.3-7.9); NEUT % 69.5 % (47.0-73.0); PLATELET COUNT AUTOMATED 189 10*3/uL (130-400); RED BLOOD COUNT 4.19 10*6/uL (4.10-5.10); RED CELL DISTRI WIDTH 13.7 % (0-14.5); WHITE BLOOD COUNT 6.6 10*3/uL (4.8-10.8)
[2018-04-16 11:07] LABS: ALBUMIN 3.5 gm/dl (3.1-4.5); BILIRUBIN, DIRECT 0.2 mg/dL (0.0-0.2); TOTAL PROTEIN 7.1 gm/dL (6.4-8.2)
== END | disposition home or self-care (01) ==
LOC: LAB 09:58
PROVIDERS: Internal Medicine Critical Care Medicine
DX: Z79.899 Other long term (current) drug therapy (principal)

== ENCOUNTER → 2018-06-11 | Outpatient (CLI) | payer OTHER ==
[~2018-06-11] MED LIST changes: +ALBUTEROL2.5 MG/0.5 INH; +ARNUITY ELLIP200 MCG INH; +CENTRUM SILVER1 EACH PO; +EMERGEN-C 1,01000 MG PO; +LOSARTAN POTASS25 M1 PO; +MUCINEX DM 30/61 TAB PO; +PRILOSEC20 M1 PO; +PROVENTIL HFA6.7 GM INH; +TYLENOL325 M2 PO; +ZITHROMAX TRI-500 M1 PO
[2018-06-11 16:10] LABS: BASO % 0.5 % (0.0-1.0); EOS # 0.1 10*3/uL (0.0-0.4); EOS % 1.7 % (1.0-4.0); HEMATOCRIT 36.7 % (37.0-47.0); HEMOGLOBIN 11.4 g/dl (12.0-16.0); LYMPH # 1.1 10*3/uL (1.3-4.4); LYMPH % 13.1 % (27.0-41.0); MEAN CELL VOLUME 87.2 fl (81.0-99.0); MEAN CORPUSCULAR HGB 27.1 pg (27.0-31.0); MEAN CORPUSCULAR HGB CONC 31.1 g/dl (33.0-37.0); MEAN PLATELET VOLUME 9.6 fl (9.6-12.3); MONO # 0.3 10*3/uL (0.1-1.0); MONO % 3.7 % (3.0-9.0); NEUT # 6.8 10*3/uL (2.3-7.9); NEUT % 80.3 % (47.0-73.0); PLATELET COUNT AUTOMATED 217 10*3/uL (130-400); RED BLOOD COUNT 4.21 10*6/uL (4.10-5.10); RED CELL DISTRI WIDTH 14.3 % (0-14.5); WHITE BLOOD COUNT 8.4 10*3/uL (4.8-10.8)
[2018-06-11 16:39] LABS: ALBUMIN 3.9 gm/dl (3.1-4.5); ALKALINE PHOSPHATASE 63 U/L (45-117); BILIRUBIN, DIRECT 0.2 mg/dL (0.0-0.2); BUN 17 mg/dl (7-24); CHLORIDE 108 mmol/L (98-107); CHOLESTEROL 164 mg/dL (<200); CREATININE 0.84 mg/dL (0.55-1.02); FREE T4 0.96 ng/dl (0.76-1.46); HDL CHOLESTEROL 33 mg/dl (40-60); LDL CHOLESTEROL 85 mg/dL (9-159); POTASSIUM 4.2 mmol/L (3.5-5.1); SGOT/AST 23 IU/L (3-35); SGPT/ALT 43 U/L (12-78); SODIUM 141 mmol/L (136-145); T3 UPTAKE 33 % (31-39); TOTAL PROTEIN 7.1 gm/dL (6.4-8.2); TRIGLYCERIDES 232 mg/dl (<150); VLDL CHOLESTEROL 46 mg/dL (6-40)
== END | disposition home or self-care (01) ==
LOC: LAB 15:28
PROVIDERS: Nurse Practitioner Family
DX: Z79.899 Other long term (current) drug therapy (principal)

== ENCOUNTER 2018-09-27 10:20 | Inpatient (IN) | payer OTHER ==
[~2018-09-27] VITALS: Ht 157.5 cm; Wt 130.2 kg
[2018-09-27] VITALS (7 sets, daily range): BP systolic 142–167; BP diastolic 69–100
--- NOTE | ~2018-09-27 | EKG ---
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
--- NOTE | ~2018-09-27 | PR ---
[place], [place] PROGRESS NOTE NAME: JEREMIAH PEARSON UNIT #: [id number] ROOM: 504 DOCTOR: EMORY BLUNT MD BIRTHDATE: [birth year] DOS: INTERVAL NOTE SUBJECTIVE: The patient is still very short of breath. She told me that she has improved about 25%. She was started on Rocephin, Zithromax and Solu-Medrol. Solu-Medrol was 60 mg twice a day as she is diabetic. The patient is moving more air today. She is better than when she was at the time of admission and we will continue the same treatment at this point forward and we will reevaluate her in 24 hours. OBJECTIVE: VITAL SIGNS: Temperature 97.6, pulse is 85, respiratory rate 20, blood pressure is 155/86. CHEST: Decreased breath sounds bilaterally with prolonged expiration and she has extensive wheezing all over the chest. HEART: S1, S2, regular rate and rhythm. No murmur, gallop or rub. ABDOMEN: Soft, nontender. EXTREMITIES: No edema. LABORATORY DATA: WBC count 14.9, hemoglobin is 12.4, hematocrit is 38.4, platelets are 338. Her blood sugar was 213 and cardiac enzymes were negative. BUN 19, creatinine 0.92. Her EKG showed atrial sensed ventricular paced rhythm. No further interpretation possible. ASSESSMENT: At this time: 1. Chronic obstructive pulmonary disease and acute tracheobronchitis and pneumonitis. 2. Diabetes mellitus type 2, uncontrolled. 3. Morbid obesity. 4. Asthma. 5. Paced rhythm. The patient has nonischemic cardiomyopathy and bipolar depression. PLAN OF CARE: 1. Continue Solu-Medrol, Rocephin, Zithromax and DuoNeb breathing treatments. 2. ADA 2000 calorie diet. 3. DVT prophylaxis. 4. May increase Solu-Medrol tomorrow if the patient does not show any further improvement. She has improved by 25%. We will follow in the morning. [place], [place] PROGRESS NOTE NAME: JEREMIAH PEARSON UNIT #: [id number] ROOM: 504 DOCTOR: EMORY BLUNT MD BIRTHDATE: [birth year] EMORY BLUNT MD CM:PNTRANS 1326 09 EMORY BLUNT MD 09/28/181909 interface
--- NOTE | ~2018-09-27 | EKG ---
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
--- NOTE | ~2018-09-27 | WRIGHTHP ---
[place], [place] PATIENT HISTORY AND PHYSICAL EXAM [id number] UNIT #: [id number] ROOM: 504 DOCTOR: EMORY BLUNT MD BIRTHDATE: [birth year] DOS: CHIEF COMPLAINT: Shortness of breath and wheezing. HISTORY OF PRESENT ILLNESS: This is a 53-year-old patient who was seen in the office yesterday and the patient was told to go to the hospital and get admitted. The patient wanted to try outpatient treatment, but she got worse today and she came to ER from where she was admitted. The patient has been started on Rocephin, Zithromax, DuoNeb breathing treatments, Solu-Medrol. The patient will continue her home meds. The patient denies any chest pain, denies any nausea, vomiting or diarrhea. PAST MEDICAL HISTORY: 1. Significant for diabetes mellitus type 2. 2. Bipolar depression. 3. Asthma. 4. Morbid obesity. 5. GERD. 6. Hyperlipidemia. 7. AICD and pacemaker since 2006, ejection fraction has improved now, it was 60% and the patient has idiopathic thrombocytopenic purpura. The patient was admitted at [place]. Her count was as low as 2000. She has seen Dr. Mccarthy in the past. PAST SURGICAL HISTORY: Hysterectomy in 2006. Surgical wound and debridement in the past. AICD and pacemaker in June 2006. Partial colectomy in 2014, about 1 foot of colon was resected. section x 2. Carpal tunnel surgery. FAMILY HISTORY: Father is living. He has ND, COPD, diabetes. Mother of ovarian cancer. She has one brother and two sisters, they are healthy. She has two daughters who are healthy. SOCIAL HISTORY: She is nonsmoker, nonalcoholic, no illicit drug use. DRUG ALLERGIES: CIPRO and HUMAN IMMUNE GLOBULIN. HOME MEDICATIONS: She takes losartan 25 mg daily. She takes Lipitor 10 mg daily, Coreg 12.5 mg twice a day, Ventolin HFA 2 puffs as needed twice a day, Lasix 40 mg daily, Arnuity Ellipta 200 mcg/act, Aerosol Powder Breath Activated 1 puff inhalation once a day, metformin 1000 twice a day, omeprazole 20 mg daily, Paxil 10 mg daily, lithium 300 mg once daily, lamotrigine 200 mg daily. REVIEW OF SYSTEMS: As in the history of present illness. Otherwise, 10-point review of system is unremarkable. PHYSICAL EXAMINATION: VITAL SIGNS: Her temperature 98 degrees Fahrenheit, heart rate 93, blood pressure 148/88, BMI 54.32. Oxygen saturation 97%. HEENT: Head is normocephalic, atraumatic. Ears, nose and throat: No discharge noted. [place], [place] PATIENT HISTORY AND PHYSICAL EXAM NAME: JEREMIAH PEARSON UNIT #: [id number] ROOM: [facility] DOCTOR: EMORY BLUNT MD BIRTHDATE: [birth year] NECK: No JVD, no lymphadenopathy. CHEST: Clinically decreased breath sounds with scattered inspiratory wheezes and with prolonged expiration. HEART: S1, S2, regular rate and rhythm. No murmur, gallop or rub. ABDOMEN: Soft, nontender. EXTREMITIES: No cyanosis, clubbing or edema. NEUROLOGIC: No focal deficit. ASSESSMENT: At this time: 1. Chronic obstructive pulmonary disease exacerbation. 2. Diabetes mellitus type 2. 3. Morbid obesity. 4. Asthma. 5. History of nonischemic cardiomyopathy. 6. History of idiopathic thrombocytopenic purpura. 7. Bipolar depression. PLAN OF CARE: 1. We will start the patient on Rocephin, Zithromax, DuoNeb breathing treatments and Solu-Medrol. 2. Labs already done in the ER and reviewed. 3. ADA 2000 calorie diet. 4. DVT prophylaxis. 5. Solu-Medrol will be decreased to 60 mg twice a day instead of 125 mg twice a day as she is diabetic. We will monitor the blood sugars and we will follow the patient in the morning. EMORY BLUNT MD CM:HISPHYS:PATIENT HISTORY AND PHYSICAL EXAMINATION 1524 1559 EMORY BLUNT MD 09/27/18 1756 interface
--- NOTE | ~2018-09-27 | EKG ---
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
--- NOTE | ~2018-09-27 | EKG ---
[place], [place] ELECTROCARDIOGRAM REPORT NAME: JEREMIAH PEARSON UNIT #: [id number] ROOM: [facility] DOCTOR: EPIPHANY DRAFT REPORT BIRTHDATE: [birth year] [facility] Test Date: 2018-09-30 Test Time: 09:41:49 Pat Name: JEREMIAH PEARSON Department: Room: [facility] 1 Gender: F Cardiac Monitor: 18 : 1965 Requested By: LANCE BLUNT Order Number: [id number] Reading MD: Lance Blunt MD Measurements Intervals [place] Rate: 70 P: -48 [place]: 196 QRS: -28 QRSD: 147 T: -22 QT: 454 QTc: 490 Interpretive Statements Atrial-sensed ventricular-paced rhythm No further analysis attempted due to paced rhythm Baseline wander in lead(s) V6 Electronically Signed On 10-03-2018 7:52:10 PDT by Lance Blunt MD CM:EKGRPT:ELECTROCARDIOGRAM REPORT 0941 [id number] LANCE BLUNT MD EPIPHANY DRAFT REPORT LANCE BLUNT MD
--- NOTE | ~2018-09-27 | PR ---
[place], [place] PROGRESS NOTE NAME: [facility]SON [id number] UNIT #: [id number] ROOM: 501 DOCTOR: EMORY BLUNT MD BIRTHDATE: [birth year] DOS: 09/30/2018 INTERVAL NOTE SUBJECTIVE: The patient is doing much better. She is not wheezing today. She was able to walk around. I will continue to keep Solu-Medrol 60 mg twice a day. She will continue Rocephin and Zithromax. She told me that she has never smoked, but has been exposed to a lot of secondhand smoke. The patient had some shortness of breath in the morning. I did order chest x-ray and EKG. EKG showed atrial sensed paced rhythm. No change from before. Her troponins were negative. OBJECTIVE: VITAL SIGNS: Temperature is 98, pulse is 78, respiratory rate is 20 and blood pressure is 152/88. CHEST: Clinically clear to auscultation bilaterally. HEART: S1, S2, regular rate and rhythm. No murmur, gallop or rub. ABDOMEN: Soft, nontender. EXTREMITIES: No cyanosis, clubbing or edema. ASSESSMENT: At this time: 1. Asthma and chronic obstructive pulmonary disease exacerbation. 2. Diabetes. 3. History of permanent cardiac pacemaker. 4. Prediabetes. 5. Gastroesophageal reflux disease and gastritis. PLAN OF CARE: 1. Continue antibiotics, Solu-Medrol, and DuoNeb breathing treatment. 2. EKG and troponins were reviewed. X-ray was ordered, but has not been back yet and will continue to follow the patient in the morning. 3. Solu-Medrol will be decreased to 40 mg b.i.d. tomorrow. EMORY BLUNT MD CM:PNTRANS 1446 0026 EMORY BLUNT MD 10/01/18 0025 interface
--- NOTE | ~2018-09-27 | PR ---
[place], [place] PROGRESS NOTE NAME: JEREMIAH PEARSON UNIT #: [id number] ROOM: 501 DOCTOR: EMORY BLUNT MD BIRTHDATE: [birth year] DOS: SUBJECTIVE: The patient is doing well. She is breathing better. Her Solu-Medrol was decreased to 40 mg b.i.d. OBJECTIVE: VITAL SIGNS: Temperature is 98.6, pulse 77, respiratory rate 20, and blood pressure 126/75. CHEST: Harsh vesicular breathing, but clear to auscultation. HEART: S1, S2, regular rate and rhythm. No murmur, gallop, or rub. ABDOMEN: Soft, nontender. EXTREMITIES: No edema noted. The patient is able to walk now, but still feeling short of breath. ASSESSMENT: At this time: 1. Chronic obstructive pulmonary disease exacerbation. 2. Asthma exacerbation. 3. Diabetes. 4. The patient has permanent pacemaker and an EKG shows paced rhythm. 5. Prediabetic. 6. Gastroesophageal reflux disease. PLAN OF CARE: 1. Continue antibiotics, Solu-Medrol at 40 mg b.i.d., DuoNeb breathing treatments every 4 hours. 2. The patient liked Pulmicort and she felt as if her legs are less swollen, may continue Pulmicort as outpatient. 3. Most likely the patient will be discharged tomorrow. EMORY BLUNT MD CM:PNSHARI 1327 0042 EMORY BLUNT MD 10/02/18 0041 interface
--- NOTE | ~2018-09-27 | PR ---
[place], [place] PROGRESS NOTE NAME: JEREMIAH PEARSON UNIT #: [id number] ROOM: 501 DOCTOR: EMORY BLUNT MD BIRTHDATE: [birth year] DOS: INTERVAL NOTE SUBJECTIVE: The patient is 50% better. She is still wheezing and short of breath. The patient is trying to walk in the vargas. The patient denies any chest pain, denies any nausea or vomiting. The patient's [id number] from [place] and his was in the room when I saw the patient. OBJECTIVE: VITAL SIGNS: Temperature is 97.7, pulse is 80, respiratory rate 20, blood pressure 150/77. CHEST: Clinically decreased breath sounds with expiratory wheeze with prolonged expiration. HEART: S1, S2, regular rate and rhythm. No murmur, gallop or rub. ABDOMEN: Soft, nontender. EXTREMITIES: No cyanosis, clubbing or edema. ASSESSMENT: At this time: 1. Chronic obstructive pulmonary disease exacerbation. 2. Pneumonitis. 3. Diabetes mellitus type 2, uncontrolled. 4. Morbid obesity and asthma. 5. Paced rhythm. 6. Deep venous thrombosis prophylaxis. PLAN OF CARE: Continue Solu-Medrol, Rocephin, Zithromax and DuoNeb breathing treatment. Continue Lovenox 40 mg subcutaneous daily. Then continue ADA 2000 calorie diet. No need to increase the Solu-Medrol at this point. The patient is slowly recovering. We will follow up the patient in the morning. The patient told me that last 2 times she has been admitted to the hospital, she has stayed for 1 week each time. EMORY BLUNT MD CM:PNTRANS 1243 1256 EMORY BLUNT MD 09/29/18 1256 interface
--- NOTE | ~2018-09-27 | DS ---
[place], [place] DISCHARGE SUMMARY NAME[id number] UNIT #: [id number] ROOM: 501 DOCTOR: EMORY BLUNT MD BIRTHDATE: [birth year] DOS: 10/02/2018 REASON OF ADMISSION: Shortness of breath and wheezing. COURSE IN THE HOSPITAL: A 53-year-old patient who was treated for COPD exacerbation with Rocephin, Zithromax, DuoNeb breathing treatments and Solu-Medrol. The patient has responded well to the treatment. She has clear lungs today. She will be discharged home without steroids and she will be sent home on Zithromax 500 mg daily for 3 more days. The patient is doing well. She is ambulatory. Initially, the patient was admitted because she failed outpatient treatment. DISCHARGE DIAGNOSES: 1. Chronic obstructive pulmonary disease exacerbation. 2. Diabetes mellitus type 2. 3. Bipolar depression. 4. Asthma. 5. Morbid obesity. 6. Gastroesophageal reflux disease. 7. Hyperlipidemia. 8. AICD and pacemaker since 2006. The patient's rhythm was paced based on her EKG. 9. History of idiopathic thrombocytopenic purpura. Her platelet count was as low as 2000. The patient has seen Dr. Deleon in the past. 10. Leukocytosis secondary to steroids. PAST SURGICAL HISTORY: Hysterectomy in 2006, AICD and pacemaker in 06/2006, partial colectomy in 2014 about 1 foot of colon was resected, section x 2, carpal tunnel surgery. MEDICATIONS: At the time of discharge: 1. Zithromax 500 mg daily for 3 days. 2. Coreg 12.5 mg twice a day. 3. Ventolin HFA 2 puffs as needed twice a day. 4. Lasix 40 mg daily. 5. Arnuity Ellipta 200 mcg/act 1 puff inhalation once a day. 6. Metformin 1000 twice a day. 7. Omeprazole 20 mg daily. 8. Paxil 10 mg daily. 9. [place] 300 mg once a day. 10. Lamotrigine 200 mg daily. 11. Lipitor 10 mg daily. PHYSICAL EXAMINATION: Today VITAL SIGNS: Blood pressure 139/93, pulse is 69, respiratory rate 14, temperature 97.6. CHEST: Clinically clear to auscultation bilaterally. HEART: S1, S2, regular rate and rhythm. No murmur or gallop. ABDOMEN: Soft, nontender. EXTREMITIES: No edema. [place], [place] DISCHARGE SUMMARY NAME: JEREMIAH PEARSON UNIT #: [id number] ROOM: [facility] DOCTOR: EMORY BLUNT MD BIRTHDATE: [birth year] NEUROLOGIC: No focal deficits. LABORATORY DATA: Today, WBC count 19.9, neutrophils 85, lymphocytes 7. DISCHARGE INSTRUCTIONS: 1. The patient to follow up in office on Monday that is in 3 days. 2. Medication was sent to [facility] in [place]. 3. We will follow the patient as outpatient. CONDITION OF PATIENT ON DISCHARGE: Fair. EMORY BLUNT MD CM:DISCHKIERA 1113 1228 EMORY BLUNT MD 10/02/18 1228 interface
[~2018-09-27 10:20] MED LIST changes: -ALBUTEROL2.5 MG/0.5 INH; -ARNUITY ELLIP200 MCG INH; -CENTRUM SILVER1 EACH PO; -EMERGEN-C 1,01000 MG PO; -LOSARTAN POTASS25 M1 PO; -MUCINEX DM 30/61 TAB PO; -PROVENTIL HFA6.7 GM INH; -TYLENOL325 M2 PO; -ZITHROMAX TRI-500 M1 PO
[2018-09-27 10:45] LABS: BASO # 0.1 10*3/uL (0.0-0.1); BASO % 0.5 % (0.0-1.0); EOS # 0.2 10*3/uL (0.0-0.4); EOS % 1.5 % (1.0-4.0); HEMATOCRIT 39.8 % (37.0-47.0); HEMOGLOBIN 12.8 g/dl (12.0-16.0); LYMPH # 3.2 10*3/uL (1.3-4.4); LYMPH % 24.3 % (27.0-41.0); MEAN CELL VOLUME 84.5 fl (81.0-99.0); MEAN CORPUSCULAR HGB 27.2 pg (27.0-31.0); MEAN CORPUSCULAR HGB CONC 32.2 g/dl (33.0-37.0); MEAN PLATELET VOLUME 9.2 fl (9.6-12.3); MONO % 7.3 % (3.0-9.0); NEUT # 8.5 10*3/uL (2.3-7.9); NEUT % 65.3 % (47.0-73.0); PLATELET COUNT AUTOMATED 300 10*3/uL (130-400); RED BLOOD COUNT 4.71 10*6/uL (4.10-5.10); RED CELL DISTRI WIDTH 14.9 % (0-14.5)
[2018-09-27 10:55] LABS: ACT PARTIAL THROMBO TIME 24.5 SECONDS (20.0-32.1); INTERNATIONAL NORM RATIO 0.9 (2.0-3.5)
[2018-09-27 11:01] LABS: ALBUMIN 3.7 gm/dl (3.1-4.5); ALKALINE PHOSPHATASE 70 U/L (45-117); BUN 16 mg/dl (7-24); CHLORIDE 106 mmol/L (98-107); CREATININE 0.95 mg/dL (0.55-1.02); POTASSIUM 3.7 mmol/L (3.5-5.1); SGOT/AST 11 IU/L (3-35); SGPT/ALT 40 U/L (12-78); SODIUM 141 mmol/L (136-145); TOTAL PROTEIN 7.7 gm/dL (6.4-8.2); TROPONIN I 0.025 ng/ml (<0.045)
[2018-09-27] MEDS ORDERED: PROVENTIL HFA6.7 GM INH (14:48)
[2018-09-27] MEDS ORDERED: ALBUTEROL2.5 MG/0.5 INH (14:53)
[2018-09-27] MEDS ORDERED: CLARITIN10 MG PO (14:55)
[2018-09-27] MEDS ORDERED: MUCINEX DM 30/61 TAB PO (14:56)
[2018-09-27] MEDS ORDERED: CENTRUM SILVER1 EACH PO (14:56)
[2018-09-27] MEDS ORDERED: TYLENOL325 M2 PO (14:57)
[2018-09-27] MEDS ORDERED: EMERGEN-C 1,01000 MG PO (14:57)
[2018-09-27] MEDS ORDERED: ARNUITY ELLIP200 MCG INH (14:59)
[2018-09-27] MEDS ORDERED: LOSARTAN POTASS25 M1 PO (15:00)
[2018-09-28] VITALS: BP 138/66
[2018-09-28 06:20] LABS: BASO # 0.1 10*3/uL (0.0-0.1); BASO % 0.3 % (0.0-1.0); HEMATOCRIT 38.4 % (37.0-47.0); HEMOGLOBIN 12.4 g/dl (12.0-16.0); LYMPH # 1.5 10*3/uL (1.3-4.4); LYMPH % 9.8 % (27.0-41.0); MEAN CELL VOLUME 84.4 fl (81.0-99.0); MEAN CORPUSCULAR HGB 27.3 pg (27.0-31.0); MEAN CORPUSCULAR HGB CONC 32.3 g/dl (33.0-37.0); MEAN PLATELET VOLUME 9.5 fl (9.6-12.3); MONO # 0.5 10*3/uL (0.1-1.0); NEUT # 12.7 10*3/uL (2.3-7.9); NEUT % 85.2 % (47.0-73.0); PLATELET COUNT AUTOMATED 338 10*3/uL (130-400); RED BLOOD COUNT 4.55 10*6/uL (4.10-5.10); RED CELL DISTRI WIDTH 14.9 % (0-14.5); WHITE BLOOD COUNT 14.9 10*3/uL (4.8-10.8)
[2018-09-28 06:45] LABS: BUN 19 mg/dl (7-24); CHLORIDE 104 mmol/L (98-107); CREATININE 0.92 mg/dL (0.55-1.02); POTASSIUM 4.1 mmol/L (3.5-5.1); SODIUM 137 mmol/L (136-145)
[2018-09-28 08:00] VITALS: BP 148/88
[2018-09-28 12:00] VITALS: BP 155/86
[2018-09-28 16:00] VITALS: BP 157/83
[2018-09-28 20:00] VITALS: BP 162/96
[2018-09-29] VITALS: BP 124/63; BP 128/65
[2018-09-29 07:51] VITALS: BP 150/77
[2018-09-29 12:00] VITALS: BP 149/83
[2018-09-29 16:00] VITALS: BP 138/76; BP 159/108
[2018-09-29 20:00] VITALS: BP 147/89
[2018-09-30] VITALS: BP 140/70; BP 140/71; BP 150/99
[2018-09-30 12:00] VITALS: BP 152/88
[2018-09-30 16:00] VITALS: BP 122/61
[2018-09-30 20:00] VITALS: BP 152/91
[2018-10-01] VITALS: BP 134/62
[2018-10-01 08:00] VITALS: BP 118/86
[2018-10-01 12:00] VITALS: BP 126/75
[2018-10-01 16:00] VITALS: BP 119/63
[2018-10-01 20:00] VITALS: BP 135/81
[2018-10-02] VITALS: BP 119/76
[2018-10-02 06:44] LABS: HEMATOCRIT 41.7 % (37.0-47.0); HEMOGLOBIN 13.3 g/dl (12.0-16.0); MEAN CELL VOLUME 84.6 fl (81.0-99.0); MEAN CORPUSCULAR HGB CONC 31.9 g/dl (33.0-37.0); MEAN PLATELET VOLUME 9.8 fl (9.6-12.3); PLATELET COUNT AUTOMATED 340 10*3/uL (130-400); RED BLOOD COUNT 4.93 10*6/uL (4.10-5.10); RED CELL DISTRI WIDTH 14.7 % (0-14.5); WHITE BLOOD COUNT 19.9 10*3/uL (4.8-10.8)
[2018-10-02 07:04] LABS: PLATELET SUFFICIENCY NORMAL (NORMAL); TOTAL CELLS COUNTED 100 #CELLS
[2018-10-02 07:53] VITALS: BP 139/93
[2018-10-02] MEDS ORDERED: ZITHROMAX TRI-500 M1 PO (11:02)
== END 2018-10-02 12:09 | disposition home or self-care (01) | DRG 190 ==
LOC: ED 10:20 → 5E 12:51 → EDHOLD 12:51 → 5E 12:59
PROVIDERS: Emergency Medicine; ADMIT Internal Medicine
DX: J44.0 Chronic obstructive pulmonary disease with (acute) lower respiratory infection (principal); J18.9 Pneumonia, unspecified organism; I42.9 Cardiomyopathy, unspecified; J45.901 Unspecified asthma with (acute) exacerbation; Z68.43 Body mass index [BMI] 50.0-59.9, adult; J44.1 Chronic obstructive pulmonary disease with (acute) exacerbation; F31.9 Bipolar disorder, unspecified; K29.70 Gastritis, unspecified, without bleeding; E11.65 Type 2 diabetes mellitus with hyperglycemia; K57.90 Diverticulosis of intestine, part unspecified, without perforation or abscess without bleeding; I10 Essential (primary) hypertension; E66.01 Morbid (severe) obesity due to excess calories; K21.9 Gastro-esophageal reflux disease without esophagitis; E78.5 Hyperlipidemia, unspecified; J20.9 Acute bronchitis, unspecified; D72.829 Elevated white blood cell count, unspecified; T38.0X5A Adverse effect of glucocorticoids and synthetic analogues, initial encounter; Y92.89 Other specified places as the place of occurrence of the external cause; Z95.0 Presence of cardiac pacemaker; Z88.1 Allergy status to other antibiotic agents; Z88.8 Allergy status to other drugs, medicaments and biological substances; Z91.09 Other allergy status, other than to drugs and biological substances; I25.2 Old myocardial infarction; Z87.01 Personal history of pneumonia (recurrent); Z90.710 Acquired absence of both cervix and uterus; Z98.891 History of uterine scar from previous surgery; Z83.3 Family history of diabetes mellitus; Z82.3 Family history of stroke; Z82.49 Family history of ischemic heart disease and other diseases of the circulatory system; Z82.5 Family history of asthma and other chronic lower respiratory diseases; Z83.438 Family history of other disorder of lipoprotein metabolism and other lipidemia; Z90.49 Acquired absence of other specified parts of digestive tract; Z80.41 Family history of malignant neoplasm of ovary

== ENCOUNTER 2021-01-07 15:33 | Inpatient (IN) | payer BC ==
[~2021-01-07] VITALS: Ht 157.4 cm; Wt 113.6 kg
[~2021-01-07 15:33] MED LIST changes: +ALBUTEROL2.5 MG/0.5 INH; +ARNUITY ELLIP200 MCG INH; +CENTRUM SILVER1 EACH PO; +EMERGEN-C 1,01000 MG PO; +LOSARTAN POTASS25 M1 PO; +MUCINEX DM 30/61 TAB PO; +PROVENTIL HFA6.7 GM INH; +TYLENOL325 M2 PO; +ZITHROMAX TRI-500 M1 PO
[2021-01-07 15:34] VITALS: BP 143/61
[2021-01-07 16:21] LABS: HEMATOCRIT 39.4 % (37.0-47.0); MEAN CELL VOLUME 83.8 fl (81.0-99.0); MEAN CORPUSCULAR HGB 27.2 pg (27.0-31.0); MEAN CORPUSCULAR HGB CONC 32.5 g/dl (33.0-37.0); MEAN PLATELET VOLUME 9.7 fl (9.6-12.3); PLATELET COUNT AUTOMATED 176 10*3/uL (130-400); RED CELL DISTRI WIDTH 13.2 % (0-14.5); WHITE BLOOD COUNT 3.8 10*3/uL (4.8-10.8)
[2021-01-07 16:40] LABS: ALBUMIN 2.9 gm/dl (3.1-4.5); ALKALINE PHOSPHATASE 93 U/L (45-117); BUN 8 mg/dl (7-24); CHLORIDE 103 mmol/L (98-107); CPK 265 U/L (26-192); CREATININE 0.78 mg/dL (0.55-1.02); POTASSIUM 3.5 mmol/L (3.5-5.1); SGOT/AST 52 IU/L (3-35); SGPT/ALT 50 U/L (12-78); SODIUM 135 mmol/L (136-145); TOTAL PROTEIN 7.6 gm/dL (6.4-8.2); TROPONIN I 0.035 ng/ml (<0.045)
[2021-01-07 17:25] LABS: ATYPICAL LYMPHS 2 % (0-0); PLATELET SUFFICIENCY NORMAL (NORMAL); TOTAL CELLS COUNTED 100 #CELLS
[2021-01-07 17:43] LABS: ACT PARTIAL THROMBO TIME 32.8 SECONDS (20.0-32.1)
[2021-01-07 17:55] VITALS: BP 136/70
[2021-01-07 20:00] VITALS: BP 130/77
[2021-01-07 22:00] VITALS: BP 120/78
[2021-01-08] VITALS: BP 131/67
[2021-01-08 02:24] LABS: BILIRUBIN Negative (Negative); BLOOD Trace-Lysed (Negative); CLARITY Clear (Clear); COLOR Yellow (Yellow); GLUCOSE 3+ (Negative); KETONE 3+ (Negative); LEUKO ESTERASE Negative (Negative); NITRITE Negative (Negative); PH 6.5 (4.5-8.0); SPECIFIC GRAVITY 1.025 (1.001-1.030)
[2021-01-08 02:45] LABS: BACTERIA 2+
[2021-01-08 06:27] LABS: HEMATOCRIT 41.9 % (37.0-47.0); MEAN CELL VOLUME 85.2 fl (81.0-99.0); MEAN CORPUSCULAR HGB 27.4 pg (27.0-31.0); MEAN CORPUSCULAR HGB CONC 32.2 g/dl (33.0-37.0); MEAN PLATELET VOLUME 9.5 fl (9.6-12.3); PLATELET COUNT AUTOMATED 204 10*3/uL (130-400); RED BLOOD COUNT 4.92 10*6/uL (4.10-5.10); RED CELL DISTRI WIDTH 13.3 % (0-14.5); WHITE BLOOD COUNT 3.2 10*3/uL (4.8-10.8)
[2021-01-08 06:42] LABS: CHLORIDE 104 mmol/L (98-107); POTASSIUM 3.9 mmol/L (3.5-5.1); SODIUM 137 mmol/L (136-145)
[2021-01-08 06:51] LABS: ALBUMIN 2.9 gm/dl (3.1-4.5); ALKALINE PHOSPHATASE 98 U/L (45-117); BUN 13 mg/dl (7-24); CREATININE 0.76 mg/dL (0.55-1.02); SGOT/AST 54 IU/L (3-35); SGPT/ALT 50 U/L (12-78); TOTAL PROTEIN 7.7 gm/dL (6.4-8.2)
[2021-01-08 07:42] LABS: ATYPICAL LYMPHS 1 % (0-0); PLATELET SUFFICIENCY NORMAL (NORMAL); TOTAL CELLS COUNTED 100 #CELLS
[2021-01-08 08:00] VITALS: BP 127/72
[2021-01-08] MEDS ORDERED: OLANZAPINE10 MG PO (10:35)
[2021-01-08] MEDS ORDERED: PAROXETINE10 MG PO (10:36)
[2021-01-08 12:00] VITALS: BP 115/73
[2021-01-08 16:00] VITALS: BP 139/70
[2021-01-08 20:31] VITALS: BP 128/84
[2021-01-09 00:42] VITALS: BP 130/79
[2021-01-09 03:56] LABS: HEMATOCRIT 39.5 % (37.0-47.0); MEAN CELL VOLUME 83.9 fl (81.0-99.0); MEAN CORPUSCULAR HGB 27.4 pg (27.0-31.0); MEAN CORPUSCULAR HGB CONC 32.7 g/dl (33.0-37.0); MEAN PLATELET VOLUME 9.5 fl (9.6-12.3); RED BLOOD COUNT 4.71 10*6/uL (4.10-5.10); RED CELL DISTRI WIDTH 13.2 % (0-14.5); WHITE BLOOD COUNT 4.7 10*3/uL (4.8-10.8)
[2021-01-09 03:57] LABS: PLATELET COUNT AUTOMATED 270 10*3/uL (130-400)
[2021-01-09 04:03] VITALS: BP 118/80
[2021-01-09 04:11] LABS: BUN 20 mg/dl (7-24); CREATININE 0.77 mg/dL (0.55-1.02)
[2021-01-09 04:12] LABS: ALBUMIN 2.8 gm/dl (3.1-4.5); ALKALINE PHOSPHATASE 90 U/L (45-117); CHLORIDE 107 mmol/L (98-107); LDH 360 U/L (84-246); POTASSIUM 3.8 mmol/L (3.5-5.1); SGOT/AST 33 IU/L (3-35); SGPT/ALT 45 U/L (12-78); SODIUM 137 mmol/L (136-145); TOTAL PROTEIN 7.5 gm/dL (6.4-8.2)
[2021-01-09 04:21] LABS: PLATELET SUFFICIENCY NORMAL (NORMAL); TOTAL CELLS COUNTED 100 #CELLS
[2021-01-09 08:00] VITALS: BP 122/65
[2021-01-09 12:03] VITALS: BP 112/59
[2021-01-09 16:03] VITALS: BP 117/65
[2021-01-09 20:00] VITALS: BP 137/77
[2021-01-10] VITALS: BP 124/58
[2021-01-10 06:58] LABS: BASO % 0.2 % (0.0-1.0); HEMATOCRIT 40.5 % (37.0-47.0); LYMPH # 1.2 10*3/uL (1.3-4.4); LYMPH % 20.3 % (27.0-41.0); MEAN CELL VOLUME 84.9 fl (81.0-99.0); MEAN CORPUSCULAR HGB 27.5 pg (27.0-31.0); MEAN CORPUSCULAR HGB CONC 32.3 g/dl (33.0-37.0); MEAN PLATELET VOLUME 9.5 fl (9.6-12.3); MONO # 0.9 10*3/uL (0.1-1.0); MONO % 15.7 % (3.0-9.0); NEUT # 3.7 10*3/uL (2.3-7.9); NEUT % 62.8 % (47.0-73.0); PLATELET COUNT AUTOMATED 286 10*3/uL (130-400); RED BLOOD COUNT 4.77 10*6/uL (4.10-5.10); RED CELL DISTRI WIDTH 13.2 % (0-14.5); WHITE BLOOD COUNT 5.9 10*3/uL (4.8-10.8)
[2021-01-10 07:23] LABS: ALBUMIN 2.8 gm/dl (3.1-4.5); BUN 22 mg/dl (7-24); CHLORIDE 108 mmol/L (98-107); POTASSIUM 3.3 mmol/L (3.5-5.1); SODIUM 139 mmol/L (136-145)
[2021-01-10 07:26] LABS: ALKALINE PHOSPHATASE 87 U/L (45-117); CREATININE 0.68 mg/dL (0.55-1.02); LDH 334 U/L (84-246); SGOT/AST 31 IU/L (3-35); SGPT/ALT 37 U/L (12-78); TOTAL PROTEIN 7.4 gm/dL (6.4-8.2)
[2021-01-10 08:00] VITALS: BP 132/83
[2021-01-10 12:00] VITALS: BP 126/81
[2021-01-10 16:00] VITALS: BP 128/70; BP 156/60
[2021-01-10 20:00] VITALS: BP 144/75
[2021-01-11] VITALS: BP 127/68
[2021-01-11 07:05] LABS: HEMATOCRIT 40.5 % (37.0-47.0); MEAN CELL VOLUME 84.7 fl (81.0-99.0); MEAN CORPUSCULAR HGB 27.6 pg (27.0-31.0); MEAN CORPUSCULAR HGB CONC 32.6 g/dl (33.0-37.0); MEAN PLATELET VOLUME 9.3 fl (9.6-12.3); PLATELET COUNT AUTOMATED 330 10*3/uL (130-400); RED BLOOD COUNT 4.78 10*6/uL (4.10-5.10); RED CELL DISTRI WIDTH 13.1 % (0-14.5); WHITE BLOOD COUNT 5.8 10*3/uL (4.8-10.8)
[2021-01-11 07:22] LABS: ALBUMIN 2.6 gm/dl (3.1-4.5); BUN 20 mg/dl (7-24); CHLORIDE 108 mmol/L (98-107); CREATININE 0.72 mg/dL (0.55-1.02); LDH 309 U/L (84-246); POTASSIUM 3.6 mmol/L (3.5-5.1); SGOT/AST 27 IU/L (3-35); SGPT/ALT 36 U/L (12-78); SODIUM 140 mmol/L (136-145); TOTAL PROTEIN 7.3 gm/dL (6.4-8.2)
[2021-01-11 07:23] LABS: ALKALINE PHOSPHATASE 80 U/L (45-117)
[2021-01-11 08:00] VITALS: BP 131/80
[2021-01-11 08:38] LABS: ATYPICAL LYMPHS 2 % (0-0); PLATELET SUFFICIENCY NORMAL (NORMAL); TOTAL CELLS COUNTED 100 #CELLS
[2021-01-11 12:00] VITALS: BP 119/53
[2021-01-11 16:00] VITALS: BP 114/66
[2021-01-11 20:00] VITALS: BP 123/63
[2021-01-12] VITALS: BP 105/68
[2021-01-12 06:46] LABS: ALBUMIN 2.8 gm/dl (3.1-4.5); BUN 19 mg/dl (7-24); CHLORIDE 106 mmol/L (98-107); CREATININE 0.72 mg/dL (0.55-1.02); POTASSIUM 3.3 mmol/L (3.5-5.1); SGOT/AST 24 IU/L (3-35); SGPT/ALT 36 U/L (12-78); SODIUM 138 mmol/L (136-145)
[2021-01-12 06:49] LABS: ALKALINE PHOSPHATASE 81 U/L (45-117); TOTAL PROTEIN 7.4 gm/dL (6.4-8.2)
[2021-01-12 06:52] LABS: HEMATOCRIT 41.4 % (37.0-47.0); MEAN CELL VOLUME 84.7 fl (81.0-99.0); MEAN CORPUSCULAR HGB 27.6 pg (27.0-31.0); MEAN CORPUSCULAR HGB CONC 32.6 g/dl (33.0-37.0); MEAN PLATELET VOLUME 9.5 fl (9.6-12.3); PLATELET COUNT AUTOMATED 361 10*3/uL (130-400); RED BLOOD COUNT 4.89 10*6/uL (4.10-5.10); RED CELL DISTRI WIDTH 12.9 % (0-14.5); WHITE BLOOD COUNT 7.9 10*3/uL (4.8-10.8)
[2021-01-12 07:49] LABS: PLATELET SUFFICIENCY NORMAL (NORMAL); TOTAL CELLS COUNTED 100 #CELLS
[2021-01-12 08:00] VITALS: BP 115/60
[2021-01-12 12:00] VITALS: BP 116/70
[2021-01-12 16:00] VITALS: BP 115/72
[2021-01-12 20:00] VITALS: BP 133/77
[2021-01-13] VITALS: BP 120/73
[2021-01-13 06:41] LABS: ALBUMIN 2.9 gm/dl (3.1-4.5); ALKALINE PHOSPHATASE 86 U/L (45-117); BUN 20 mg/dl (7-24); CHLORIDE 105 mmol/L (98-107); CREATININE 0.81 mg/dL (0.55-1.02); POTASSIUM 3.6 mmol/L (3.5-5.1); SGOT/AST 27 IU/L (3-35); SGPT/ALT 40 U/L (12-78); SODIUM 137 mmol/L (136-145); TOTAL PROTEIN 7.6 gm/dL (6.4-8.2)
[2021-01-13 08:00] VITALS: BP 124/62
[2021-01-13 12:00] VITALS: BP 120/63
[2021-01-13 16:00] VITALS: BP 107/62
[2021-01-13 20:00] VITALS: BP 138/74
[2021-01-14] VITALS: BP 137/72
[2021-01-14 06:11] LABS: ALBUMIN 2.8 gm/dl (3.1-4.5); ALKALINE PHOSPHATASE 84 U/L (45-117); BUN 23 mg/dl (7-24); CHLORIDE 103 mmol/L (98-107); POTASSIUM 3.6 mmol/L (3.5-5.1); SGOT/AST 18 IU/L (3-35); SGPT/ALT 40 U/L (12-78); SODIUM 134 mmol/L (136-145); TOTAL PROTEIN 7.6 gm/dL (6.4-8.2)
[2021-01-14 08:00] VITALS: BP 139/81
[2021-01-14] MEDS ORDERED: ATORVASTATIN CA40 M1 PO ×2 (10:37→10:42)
[2021-01-14] MEDS ORDERED: DECADRON6 M1 PO (10:37)
[2021-01-14] MEDS ORDERED: LOSARTAN POTASS25 M1 PO (10:42)
[2021-01-14] MEDS ORDERED: COREG12.5 M1 PO (10:42)
[2021-01-14] MEDS ORDERED: METFORMIN HCL500 M2 PO (10:55)
[2021-01-14 12:00] VITALS: BP 102/62
== END 2021-01-14 16:10 | disposition home health service (06) | DRG 177 ==
LOC: ED 15:33 → 4E 16:55 → EDHOLD 16:55 → 4E 20:23
PROVIDERS: Emergency Medicine; Hospitalist; Internal Medicine Critical Care Medicine; ADMIT Internal Medicine; ATTEND Internal Medicine
PROC: XW033E5 Introduction of Remdesivir Anti-infective into Peripheral Vein, Percutaneous Approach, New Technology Group 5 (ICD-10-PCS; principal; 2021-01-08)
PROC: 5A0945A Assistance with Respiratory Ventilation, 24-96 Consecutive Hours, High Flow/Velocity Cannula (ICD-10-PCS; 2021-01-09)
DX: U07.1 COVID-19 (principal); J12.82 Pneumonia due to coronavirus disease 2019; E43 Unspecified severe protein-calorie malnutrition; G93.41 Metabolic encephalopathy; J96.01 Acute respiratory failure with hypoxia; E87.1 Hypo-osmolality and hyponatremia; J44.0 Chronic obstructive pulmonary disease with (acute) lower respiratory infection; E44.0 Moderate protein-calorie malnutrition; Z68.42 Body mass index [BMI] 45.0-49.9, adult; K21.9 Gastro-esophageal reflux disease without esophagitis; E66.01 Morbid (severe) obesity due to excess calories; I10 Essential (primary) hypertension; E61.1 Iron deficiency; R79.82 Elevated C-reactive protein (CRP); E55.9 Vitamin D deficiency, unspecified; R31.9 Hematuria, unspecified; E87.6 Hypokalemia; F19.959 Other psychoactive substance use, unspecified with psychoactive substance-induced psychotic disorder, unspecified; E11.65 Type 2 diabetes mellitus with hyperglycemia; K76.0 Fatty (change of) liver, not elsewhere classified; Z90.710 Acquired absence of both cervix and uterus; Z98.891 History of uterine scar from previous surgery; Z88.8 Allergy status to other drugs, medicaments and biological substances; Z88.1 Allergy status to other antibiotic agents

== ENCOUNTER 2021-03-05 18:25 | Emergency (ER) | payer MEDICAID ==
[~2021-03-05] VITALS: Ht 157.4 cm; Wt 131.5 kg
[~2021-03-05 18:25] MED LIST changes: +ATORVASTATIN CA40 M1 PO; +COREG12.5 M1 PO; +DECADRON6 M1 PO; +METFORMIN HCL500 M2 PO; +OLANZAPINE10 MG PO; +PAROXETINE10 MG PO
[2021-03-05] MEDS ORDERED: LANTUS SOL100 UNIT/1 SC (19:00)
[2021-03-05] MEDS ORDERED: METFORMIN HYD1000 MG PO (19:01)
[2021-03-05] MEDS ORDERED: ASMANEX110 MC2 INH (19:01)
[2021-03-05 19:38] LABS: BASO % 0.5 % (0.0-1.0); EOS # 0.4 10*3/uL (0.0-0.4); EOS % 4.8 % (1.0-4.0); HEMATOCRIT 39.5 % (37.0-47.0); LYMPH # 1.8 10*3/uL (1.3-4.4); LYMPH % 20.9 % (27.0-41.0); MEAN CELL VOLUME 84.9 fl (81.0-99.0); MEAN CORPUSCULAR HGB CONC 32.9 g/dl (33.0-37.0); MEAN PLATELET VOLUME 9.1 fl (9.6-12.3); MONO # 0.8 10*3/uL (0.1-1.0); MONO % 8.8 % (3.0-9.0); NEUT # 5.5 10*3/uL (2.3-7.9); NEUT % 64.5 % (47.0-73.0); PLATELET COUNT AUTOMATED 235 10*3/uL (130-400); RED BLOOD COUNT 4.65 10*6/uL (4.10-5.10); RED CELL DISTRI WIDTH 14.2 % (0-14.5); WHITE BLOOD COUNT 8.6 10*3/uL (4.8-10.8)
[2021-03-05 19:56] LABS: ALBUMIN 3.4 gm/dl (3.1-4.5); ALKALINE PHOSPHATASE 84 U/L (45-117); BUN 11 mg/dl (7-24); CHLORIDE 107 mmol/L (98-107); CREATININE 0.82 mg/dL (0.55-1.02); POTASSIUM 3.5 mmol/L (3.5-5.1); SGOT/AST 14 IU/L (3-35); SGPT/ALT 28 U/L (12-78); SODIUM 139 mmol/L (136-145); TOTAL PROTEIN 7.3 gm/dL (6.4-8.2)
[2021-03-05 20:21] LABS: TROPONIN I < 0.015 ng/ml (<0.045)
[2021-03-05 22:52] VITALS: BP 118/53
== END 2021-03-05 23:06 | disposition home or self-care (01) ==
LOC: ED 18:25
PROVIDERS: Nurse Practitioner Family
DX: J20.8 Acute bronchitis due to other specified organisms (principal); Z88.1 Allergy status to other antibiotic agents; Z88.7 Allergy status to serum and vaccine; Z79.899 Other long term (current) drug therapy

== ENCOUNTER 2021-04-14 14:07 | Inpatient (IN) | payer OTHER ==
[~2021-04-14] VITALS: Ht 157.5 cm; Wt 124.3 kg
[~2021-04-14 14:07] MED LIST changes: +ASMANEX110 MC2 INH; +LANTUS SOL100 UNIT/1 SC; +METFORMIN HYD1000 MG PO
[2021-04-14 14:21] VITALS: BP 120/71
[2021-04-14 14:54] LABS: BASO # 0.1 10*3/uL (0.0-0.1); BASO % 0.6 % (0.0-1.0); EOS # 0.3 10*3/uL (0.0-0.4); EOS % 2.7 % (1.0-4.0); HEMATOCRIT 41.8 % (37.0-47.0); LYMPH # 2.2 10*3/uL (1.3-4.4); LYMPH % 19.2 % (27.0-41.0); MEAN CELL VOLUME 85.1 fl (81.0-99.0); MEAN CORPUSCULAR HGB 28.3 pg (27.0-31.0); MEAN CORPUSCULAR HGB CONC 33.3 g/dl (33.0-37.0); MEAN PLATELET VOLUME 9.2 fl (9.6-12.3); MONO # 0.8 10*3/uL (0.1-1.0); MONO % 6.6 % (3.0-9.0); NEUT % 70.5 % (47.0-73.0); PLATELET COUNT AUTOMATED 325 10*3/uL (130-400); RED BLOOD COUNT 4.91 10*6/uL (4.10-5.10); RED CELL DISTRI WIDTH 14.2 % (0-14.5); WHITE BLOOD COUNT 11.4 10*3/uL (4.8-10.8)
[2021-04-14 15:09] LABS: ACT PARTIAL THROMBO TIME 28.2 SECONDS (20.0-32.1)
[2021-04-14 15:11] LABS: ALBUMIN 3.6 gm/dl (3.1-4.5); ALKALINE PHOSPHATASE 79 U/L (45-117); BUN 14 mg/dl (7-24); CHLORIDE 104 mmol/L (98-107); CREATININE 0.91 mg/dL (0.55-1.02); POTASSIUM 3.5 mmol/L (3.5-5.1); SGOT/AST 15 IU/L (3-35); SGPT/ALT 27 U/L (12-78); SODIUM 139 mmol/L (136-145); TOTAL PROTEIN 7.9 gm/dL (6.4-8.2)
[2021-04-14] MEDS ORDERED: VENT7GM INH (19:11)
[2021-04-14] MEDS ORDERED: CLARITIN10 MG PO (19:12)
[2021-04-14 20:52] VITALS: BP 133/73
[2021-04-14 22:22] VITALS: BP 154/77
[2021-04-14] MEDS ORDERED: GLIPIZIDE5 MG PO (22:42)
[2021-04-14] MEDS ORDERED: MUCINEX D ER 61 EACH PO (23:17)
[2021-04-14] MEDS ORDERED: TYLENOL325 M1 PO (23:20)
[2021-04-15] VITALS: BP 103/44
[2021-04-15 06:56] LABS: BASO % 0.3 % (0.0-1.0); EOS # 0.1 10*3/uL (0.0-0.4); EOS % 0.5 % (1.0-4.0); HEMATOCRIT 38.5 % (37.0-47.0); LYMPH # 1.1 10*3/uL (1.3-4.4); LYMPH % 7.8 % (27.0-41.0); MEAN CELL VOLUME 84.6 fl (81.0-99.0); MEAN CORPUSCULAR HGB 28.1 pg (27.0-31.0); MEAN CORPUSCULAR HGB CONC 33.2 g/dl (33.0-37.0); MEAN PLATELET VOLUME 9.3 fl (9.6-12.3); MONO # 0.2 10*3/uL (0.1-1.0); MONO % 1.2 % (3.0-9.0); NEUT % 89.5 % (47.0-73.0); PLATELET COUNT AUTOMATED 286 10*3/uL (130-400); RED BLOOD COUNT 4.55 10*6/uL (4.10-5.10); RED CELL DISTRI WIDTH 14.2 % (0-14.5); WHITE BLOOD COUNT 14.5 10*3/uL (4.8-10.8)
[2021-04-15 07:09] LABS: ALBUMIN 3.4 gm/dl (3.1-4.5); ALKALINE PHOSPHATASE 69 U/L (45-117); BUN 20 mg/dl (7-24); CHLORIDE 106 mmol/L (98-107); CREATININE 1.05 mg/dL (0.55-1.02); POTASSIUM 3.9 mmol/L (3.5-5.1); SGOT/AST 13 IU/L (3-35); SGPT/ALT 25 U/L (12-78); SODIUM 137 mmol/L (136-145); TOTAL PROTEIN 7.4 gm/dL (6.4-8.2)
[2021-04-15 08:00] VITALS: BP 144/82
[2021-04-15 12:00] VITALS: BP 126/75
[2021-04-15 16:00] VITALS: BP 139/79
[2021-04-15 20:00] VITALS: BP 135/65
[2021-04-16] VITALS: BP 100/50
[2021-04-16 08:00] VITALS: BP 111/57
[2021-04-16 12:00] VITALS: BP 120/63
[2021-04-16 16:00] VITALS: BP 118/61
[2021-04-16 20:00] VITALS: BP 147/75
[2021-04-17] VITALS: BP 104/54
[2021-04-17 06:42] LABS: BASO # 0.1 10*3/uL (0.0-0.1); BASO % 0.6 % (0.0-1.0); EOS # 0.2 10*3/uL (0.0-0.4); EOS % 1.7 % (1.0-4.0); HEMATOCRIT 36.2 % (37.0-47.0); LYMPH # 3.5 10*3/uL (1.3-4.4); LYMPH % 32.4 % (27.0-41.0); MEAN CELL VOLUME 87.4 fl (81.0-99.0); MEAN CORPUSCULAR HGB 28.5 pg (27.0-31.0); MEAN CORPUSCULAR HGB CONC 32.6 g/dl (33.0-37.0); MEAN PLATELET VOLUME 9.5 fl (9.6-12.3); MONO # 0.8 10*3/uL (0.1-1.0); MONO % 7.5 % (3.0-9.0); NEUT # 6.1 10*3/uL (2.3-7.9); NEUT % 56.9 % (47.0-73.0); PLATELET COUNT AUTOMATED 257 10*3/uL (130-400); RED BLOOD COUNT 4.14 10*6/uL (4.10-5.10); RED CELL DISTRI WIDTH 14.4 % (0-14.5); WHITE BLOOD COUNT 10.7 10*3/uL (4.8-10.8)
[2021-04-17 06:52] LABS: BUN 19 mg/dl (7-24); CHLORIDE 111 mmol/L (98-107); CREATININE 0.74 mg/dL (0.55-1.02); POTASSIUM 3.4 mmol/L (3.5-5.1); SODIUM 142 mmol/L (136-145)
[2021-04-17 08:00] VITALS: BP 124/78
[2021-04-17 12:00] VITALS: BP 124/74
[2021-04-17 16:00] VITALS: BP 126/71
[2021-04-17] MEDS ORDERED: PREDNISONE20 M1 PO (17:20)
[2021-04-17] MEDS ORDERED: VIBRAMYCIN HYC100 MG PO (17:20)
== END 2021-04-17 18:48 | disposition home or self-care (01) | DRG 140 ==
LOC: ED 14:07 → 5E 18:15 → 4E 18:15 → EDHOLD 18:15 → 4E 18:15 → 5E 04-15 17:20
PROVIDERS: Emergency Medicine; ADMIT Internal Medicine; ATTEND Internal Medicine
DX: J44.1 Chronic obstructive pulmonary disease with (acute) exacerbation (principal); K76.0 Fatty (change of) liver, not elsewhere classified; N17.9 Acute kidney failure, unspecified; E11.69 Type 2 diabetes mellitus with other specified complication; E66.9 Obesity, unspecified; E11.65 Type 2 diabetes mellitus with hyperglycemia; F31.9 Bipolar disorder, unspecified; Z95.810 Presence of automatic (implantable) cardiac defibrillator; I42.9 Cardiomyopathy, unspecified; Z20.822 Contact with and (suspected) exposure to COVID-19; I10 Essential (primary) hypertension; E78.5 Hyperlipidemia, unspecified; D72.810 Lymphocytopenia; K21.9 Gastro-esophageal reflux disease without esophagitis; J45.901 Unspecified asthma with (acute) exacerbation; Z98.891 History of uterine scar from previous surgery; Z88.1 Allergy status to other antibiotic agents; Z88.8 Allergy status to other drugs, medicaments and biological substances; Z79.899 Other long term (current) drug therapy; Z82.49 Family history of ischemic heart disease and other diseases of the circulatory system; Z82.3 Family history of stroke; Z83.3 Family history of diabetes mellitus; Z90.710 Acquired absence of both cervix and uterus; Z79.1 Long term (current) use of non-steroidal anti-inflammatories (NSAID); Z68.43 Body mass index [BMI] 50.0-59.9, adult

== ENCOUNTER 2021-06-06 12:14 | Emergency (ER) | payer OTHER ==
[~2021-06-06] VITALS: Ht 157.4 cm; Wt 127.0 kg
[~2021-06-06 12:14] MED LIST changes: +GLIPIZIDE5 MG PO; +MUCINEX D ER 61 EACH PO; +PREDNISONE20 M1 PO; +VENT7GM INH; +VIBRAMYCIN HYC100 MG PO
[2021-06-06 12:21] VITALS: BP 128/79
[2021-06-06] MEDS ORDERED: TRULICITY1.5 MG/0.5 SC (12:29)
[2021-06-06] MEDS ORDERED: SEMGLEE100 UNIT/1 SQ (12:30)
[2021-06-06 12:51] LABS: BILIRUBIN Negative (Negative); BLOOD Negative (Negative); CLARITY Clear (Clear); COLOR Yellow (Yellow); GLUCOSE 2+ (Negative); KETONE Negative (Negative); LEUKO ESTERASE Negative (Negative); NITRITE Negative (Negative); UROBILINOGEN 0.2 E.U./dl (0.0-1.0)
[2021-06-06 12:52] LABS: BASO # 0.1 10*3/uL (0.0-0.1); BASO % 0.9 % (0.0-1.0); EOS # 0.2 10*3/uL (0.0-0.4); EOS % 1.9 % (1.0-4.0); HEMATOCRIT 43.3 % (37.0-47.0); LYMPH # 2.8 10*3/uL (1.3-4.4); MEAN CELL VOLUME 84.4 fl (81.0-99.0); MEAN CORPUSCULAR HGB 28.7 pg (27.0-31.0); MEAN CORPUSCULAR HGB CONC 33.9 g/dl (33.0-37.0); MEAN PLATELET VOLUME 9.2 fl (9.6-12.3); MONO # 0.7 10*3/uL (0.1-1.0); MONO % 6.2 % (3.0-9.0); NEUT # 8.1 10*3/uL (2.3-7.9); NEUT % 67.3 % (47.0-73.0); PLATELET COUNT AUTOMATED 323 10*3/uL (130-400); RED BLOOD COUNT 5.13 10*6/uL (4.10-5.10); RED CELL DISTRI WIDTH 13.5 % (0-14.5)
[2021-06-06 13:14] LABS: CREATININE 1.15 mg/dL (0.55-1.02); POTASSIUM 3.6 mmol/L (3.5-5.1); TOTAL PROTEIN 8.3 gm/dL (6.4-8.2)
[2021-06-06 13:17] LABS: BACTERIA 1+
[2021-06-06] MEDS ORDERED: FLAGYL 375375 MG PO (13:47)
[2021-06-06] MEDS ORDERED: AUGMENTIN 875-875 MG PO (13:47)
[2021-06-06] MEDS ORDERED: ZOFRAN4 MG PO (13:49)
== END 2021-06-06 14:11 | disposition home or self-care (01) ==
LOC: ED 12:14
PROVIDERS: Nurse Practitioner Family
DX: K57.90 Diverticulosis of intestine, part unspecified, without perforation or abscess without bleeding (principal); Z88.1 Allergy status to other antibiotic agents; Z88.8 Allergy status to other drugs, medicaments and biological substances; Z79.899 Other long term (current) drug therapy; Z90.710 Acquired absence of both cervix and uterus; Z98.890 Other specified postprocedural states

== ENCOUNTER 2021-12-05 12:37 | Emergency (ER) | payer OTHER ==
[~2021-12-05] VITALS: Ht 157.4 cm; Wt 116.6 kg
[~2021-12-05 12:37] MED LIST changes: +AUGMENTIN 875-875 MG PO; +FLAGYL 375375 MG PO; +SEMGLEE100 UNIT/1 SQ; +TRULICITY1.5 MG/0.5 SC; +ZOFRAN4 MG PO
[2021-12-05 14:02] LABS: BASO # 0.1 10*3/uL (0.0-0.1); BASO % 0.6 % (0.0-1.0); EOS # 0.2 10*3/uL (0.0-0.4); EOS % 1.9 % (1.0-4.0); HEMATOCRIT 42.8 % (37.0-47.0); LYMPH # 1.6 10*3/uL (1.3-4.4); MEAN CELL VOLUME 83.8 fl (81.0-99.0); MEAN CORPUSCULAR HGB 28.2 pg (27.0-31.0); MEAN CORPUSCULAR HGB CONC 33.6 g/dl (33.0-37.0); MEAN PLATELET VOLUME 9.3 fl (9.6-12.3); MONO # 1.1 10*3/uL (0.1-1.0); MONO % 11.6 % (3.0-9.0); NEUT # 6.3 10*3/uL (2.3-7.9); NEUT % 67.6 % (47.0-73.0); PLATELET COUNT AUTOMATED 249 10*3/uL (130-400); RED BLOOD COUNT 5.11 10*6/uL (4.10-5.10); RED CELL DISTRI WIDTH 14.2 % (0-14.5); WHITE BLOOD COUNT 9.3 10*3/uL (4.8-10.8)
[2021-12-05 14:18] LABS: ALKALINE PHOSPHATASE 87 U/L (45-117); BUN 11 mg/dl (7-24); CHLORIDE 108 mmol/L (98-107); CPK 92 U/L (26-192); CREATININE 0.85 mg/dL (0.55-1.02); POTASSIUM 3.5 mmol/L (3.5-5.1); SGOT/AST 15 IU/L (3-35); SGPT/ALT 30 U/L (12-78); SODIUM 139 mmol/L (136-145); TOTAL PROTEIN 8.1 gm/dL (6.4-8.2)
[2021-12-05 18:43] VITALS: BP 153/89
== END 2021-12-05 19:27 | disposition home or self-care (01) ==
LOC: ED 12:37
PROVIDERS: Emergency Medicine
DX: U07.1 COVID-19 (principal); J44.9 Chronic obstructive pulmonary disease, unspecified; Z88.1 Allergy status to other antibiotic agents; Z88.7 Allergy status to serum and vaccine

== ENCOUNTER 2022-02-14 12:50 | Emergency (ER) | payer OTHER ==
[~2022-02-14] VITALS: Ht 165.1 cm; Wt 116.6 kg
[2022-02-14 13:51] LABS: BASO # 0.1 10*3/uL (0.0-0.1); BASO % 0.6 % (0.0-1.0); EOS # 0.2 10*3/uL (0.0-0.4); EOS % 2.1 % (1.0-4.0); HEMATOCRIT 40.5 % (37.0-47.0); LYMPH # 1.1 10*3/uL (1.3-4.4); LYMPH % 10.8 % (27.0-41.0); MEAN CELL VOLUME 87.3 fl (81.0-99.0); MEAN CORPUSCULAR HGB 28.7 pg (27.0-31.0); MEAN CORPUSCULAR HGB CONC 32.8 g/dl (33.0-37.0); MEAN PLATELET VOLUME 9.5 fl (9.6-12.3); MONO # 0.8 10*3/uL (0.1-1.0); MONO % 7.8 % (3.0-9.0); NEUT % 78.3 % (47.0-73.0); PLATELET COUNT AUTOMATED 229 10*3/uL (130-400); RED BLOOD COUNT 4.64 10*6/uL (4.10-5.10); RED CELL DISTRI WIDTH 13.7 % (0-14.5); WHITE BLOOD COUNT 10.2 10*3/uL (4.8-10.8)
[2022-02-14 14:05] LABS: ALKALINE PHOSPHATASE 100 U/L (45-117); BUN 11 mg/dl (7-24); CHLORIDE 111 mmol/L (98-107); CREATININE 1.08 mg/dL (0.55-1.02); SGOT/AST 15 IU/L (3-35); SGPT/ALT 27 U/L (12-78); SODIUM 139 mmol/L (136-145); TOTAL PROTEIN 7.5 gm/dL (6.4-8.2)
[2022-02-14 14:12] VITALS: BP 156/86
[2022-02-16] MEDS ORDERED: TRULICITY0.75 MG/0. SC (13:00)
[2022-02-18] MEDS ORDERED: ALPRAZOLAM0.5 M3 PO (10:31)
[2022-02-18] MEDS ORDERED: CEFTRIAXONE2 G1 IV (22:01)
[2022-02-18] MEDS ORDERED: DOXYCYCLINE HY100 M3 PO (22:01)
== END 2022-02-14 16:07 | disposition home or self-care (01) ==
LOC: ED 12:50
PROVIDERS: Nurse Practitioner Family
DX: B34.9 Viral infection, unspecified (principal); Z20.822 Contact with and (suspected) exposure to COVID-19; Z88.1 Allergy status to other antibiotic agents; Z88.7 Allergy status to serum and vaccine; Z79.899 Other long term (current) drug therapy; Z90.710 Acquired absence of both cervix and uterus; Z98.890 Other specified postprocedural states

== ENCOUNTER → 2022-05-04 | Outpatient (CLI) | payer OTHER ==
[~2022-05-04] MED LIST changes: +ALPRAZOLAM0.5 M3 PO; +CEFDINIR300 MG PO; +CEFTRIAXONE2 G1 IV; +DOXYCYCLINE HY100 M3 PO; +TRULICITY0.75 MG/0. SC
== END | disposition home or self-care (01) ==
LOC: MAMMO 02:35
PROVIDERS: ATTEND Internal Medicine
DX: N64.4 Mastodynia (principal)

== ENCOUNTER → 2022-07-13 | Outpatient (CLI) | payer OTHER ==
[2022-07-13 11:27] LABS: ALKALINE PHOSPHATASE 95 U/L (46-116); BUN 15 mg/dl (9-23); CHLORIDE 105 mmol/L (98-107); POTASSIUM 3.8 mmol/L (3.4-5.1); SGPT/ALT 23 U/L (10-49); TOTAL PROTEIN 7.6 gm/dL (6.0-8.0)
== END | disposition home or self-care (01) ==
LOC: LAB 10:45
PROVIDERS: ATTEND Nurse Practitioner Family
DX: Z79.899 Other long term (current) drug therapy (principal)

== ENCOUNTER → 2022-07-25 | Outpatient (CLI) | payer OTHER ==
[2022-07-25 12:15] LABS: CHOLESTEROL 152 mg/dL (<200); LDL CHOLESTEROL 71 mg/dL (9-159); TRIGLYCERIDES 207 mg/dl (<150)
== END | disposition home or self-care (01) ==
LOC: LAB 11:06
PROVIDERS: ATTEND Internal Medicine
DX: E11.65 Type 2 diabetes mellitus with hyperglycemia (principal); E78.5 Hyperlipidemia, unspecified

== ENCOUNTER 2023-04-23 16:11 | Emergency (ER) | payer OTHER ==
[~2023-04-23] VITALS: Ht 157.4 cm; Wt 114.8 kg
[~2023-04-23 16:11] MED LIST changes: +CLEOCIN HCL300 MG PO; +HYDROCODONE-AC1 EAC1 PO; +JARDIANCE25 MG PO; +TRULICITY4.5 MG/0.5 SQ; +VITAMIN D3125 MC1 PO
[2023-04-23 16:19] VITALS: BP 152/88
[2023-04-23 16:58] LABS: BASO # 0.1 10*3/uL (0.0-0.1); BASO % 0.5 % (0.0-1.0); EOS # 0.3 10*3/uL (0.0-0.4); EOS % 2.8 % (1.0-4.0); HEMATOCRIT 43.8 % (37.0-47.0); LYMPH # 2.2 10*3/uL (1.3-4.4); LYMPH % 19.5 % (27.0-41.0); MEAN CELL VOLUME 89.2 fl (81.0-99.0); MEAN CORPUSCULAR HGB 28.3 pg (27.0-31.0); MEAN CORPUSCULAR HGB CONC 31.7 g/dl (33.0-37.0); MEAN PLATELET VOLUME 9.2 fl (9.6-12.3); MONO # 0.7 10*3/uL (0.1-1.0); MONO % 6.4 % (3.0-9.0); NEUT # 7.8 10*3/uL (2.3-7.9); NEUT % 70.3 % (47.0-73.0); PLATELET COUNT AUTOMATED 301 10*3/uL (130-400); RED BLOOD COUNT 4.91 10*6/uL (4.10-5.10); RED CELL DISTRI WIDTH 13.8 % (0-14.5); WHITE BLOOD COUNT 11.1 10*3/uL (4.8-10.8)
[2023-04-23 17:02] LABS: BILIRUBIN Negative (Negative); BLOOD Negative (Negative); CLARITY Clear (Clear); COLOR Yellow (Yellow); GLUCOSE 3+ (Negative); KETONE Negative (Negative); LEUKO ESTERASE Negative (Negative); NITRITE Negative (Negative); PH 7.5 (4.5-8.0); SPECIFIC GRAVITY 1.015 (1.001-1.030); UROBILINOGEN 0.2 E.U./dl (0.0-1.0)
[2023-04-23 17:14] LABS: RBC 0-2 rbc/hpf (0-2); WBC 0-2 wbc/hpf (0-5)
[2023-04-23 17:15] LABS: BACTERIA TRACE
[2023-04-23 17:19] LABS: ALKALINE PHOSPHATASE 92 U/L (46-116); BUN 17 mg/dl (9-23); CHLORIDE 105 mmol/L (98-107); CPK 148 U/L (34-171); POTASSIUM 3.6 mmol/L (3.4-5.1); SGPT/ALT 23 U/L (5-49); TOTAL PROTEIN 7.7 gm/dL (6.0-8.0)
== END 2023-04-23 19:05 | disposition home or self-care (01) ==
LOC: ED 16:11
PROVIDERS: Physician Assistant Medical
DX: J06.9 Acute upper respiratory infection, unspecified (principal); Z20.822 Contact with and (suspected) exposure to COVID-19; R07.89 Other chest pain; J44.9 Chronic obstructive pulmonary disease, unspecified; E11.9 Type 2 diabetes mellitus without complications; F31.9 Bipolar disorder, unspecified; I50.9 Heart failure, unspecified; Z91.048 Other nonmedicinal substance allergy status; Z88.1 Allergy status to other antibiotic agents; Z88.8 Allergy status to other drugs, medicaments and biological substances; Z79.899 Other long term (current) drug therapy; Z79.2 Long term (current) use of antibiotics; Z90.711 Acquired absence of uterus with remaining cervical stump; Z98.890 Other specified postprocedural states; Z95.0 Presence of cardiac pacemaker

== ENCOUNTER → 2023-08-17 | Outpatient (CLI) | payer OTHER ==
[2023-08-17 10:17] LABS: FREE T4 1.08 ng/dl (0.89-1.76); POTASSIUM 3.8 mmol/L (3.4-5.1); T3 UPTAKE 28.7 % (22.4-36.7); TOTAL PROTEIN 7.2 gm/dL (6.0-8.0)
== END | disposition home or self-care (01) ==
LOC: LAB 09:26
PROVIDERS: ATTEND Nurse Practitioner Family
DX: Z79.899 Other long term (current) drug therapy (principal)

== ENCOUNTER → 2023-09-07 | Outpatient (CLI) | payer OTHER | END | disposition home or self-care (01) | LOC: US 00:10 | PROVIDERS: ATTEND Internal Medicine Nephrology | DX: N32.89 Other specified disorders of bladder (principal); N18.30 Chronic kidney disease, stage 3 unspecified ==

== ENCOUNTER → 2023-09-20 | Outpatient (CLI) | payer OTHER | END | disposition home or self-care (01) | LOC: MAMMO 01:22 | PROVIDERS: ATTEND Internal Medicine | DX: Z12.31 Encounter for screening mammogram for malignant neoplasm of breast (principal) ==

== ENCOUNTER 2023-09-24 16:20 | Emergency (ER) | payer OTHER ==
[~2023-09-24] VITALS: Ht 157.4 cm; Wt 111.1 kg
[2023-09-24 16:28] VITALS: BP 148/71
[2023-09-24] MEDS ORDERED: CEPHALEXIN500 M1 PO (16:44)
[2023-09-24] MEDS ORDERED: VIBRAMYCIN100 MG PO (16:44)
== END 2023-09-24 16:57 | disposition home or self-care (01) ==
LOC: ED 16:20
DX: L98.499 Non-pressure chronic ulcer of skin of other sites with unspecified severity (principal); I50.9 Heart failure, unspecified; J44.9 Chronic obstructive pulmonary disease, unspecified; I25.2 Old myocardial infarction; J45.909 Unspecified asthma, uncomplicated; F31.9 Bipolar disorder, unspecified; F41.9 Anxiety disorder, unspecified; Z88.8 Allergy status to other drugs, medicaments and biological substances; Z88.1 Allergy status to other antibiotic agents; Z98.890 Other specified postprocedural states; Z95.5 Presence of coronary angioplasty implant and graft; Z90.710 Acquired absence of both cervix and uterus

== ENCOUNTER → 2023-09-28 | Outpatient (CLI) | payer OTHER ==
[~2023-09-28] MED LIST changes: +CEPHALEXIN500 M1 PO; +VIBRAMYCIN100 MG PO
== END | disposition home or self-care (01) ==
LOC: WOUNDCARE 01:47
PROVIDERS: ATTEND Nurse Practitioner Family
DX: T81.30XA Disruption of wound, unspecified, initial encounter (principal); L89.890 Pressure ulcer of other site, unstageable; L89.95 Pressure ulcer of unspecified site, unstageable; E11.9 Type 2 diabetes mellitus without complications; Z95.0 Presence of cardiac pacemaker; Z90.710 Acquired absence of both cervix and uterus; Z79.84 Long term (current) use of oral hypoglycemic drugs; Z79.899 Other long term (current) drug therapy; Y83.8 Other surgical procedures as the cause of abnormal reaction of the patient, or of later complication, without mention of misadventure at the time of the procedure; Y92.89 Other specified places as the place of occurrence of the external cause

== ENCOUNTER → 2023-10-05 | Outpatient (CLI) | payer OTHER | END | disposition home or self-care (01) | LOC: WOUNDCARE 00:48 | PROVIDERS: ATTEND Nurse Practitioner Family | DX: T81.30XD Disruption of wound, unspecified, subsequent encounter (principal); L89.890 Pressure ulcer of other site, unstageable; L89.95 Pressure ulcer of unspecified site, unstageable; E11.9 Type 2 diabetes mellitus without complications; Z95.0 Presence of cardiac pacemaker; Z90.710 Acquired absence of both cervix and uterus; Z79.84 Long term (current) use of oral hypoglycemic drugs; Z79.899 Other long term (current) drug therapy; Y83.8 Other surgical procedures as the cause of abnormal reaction of the patient, or of later complication, without mention of misadventure at the time of the procedure ==

== ENCOUNTER → 2023-10-12 | Outpatient (CLI) | payer OTHER | END | disposition home or self-care (01) | LOC: WOUNDCARE 01:48 | PROVIDERS: ATTEND Nurse Practitioner Family | DX: T81.30XD Disruption of wound, unspecified, subsequent encounter (principal); L89.890 Pressure ulcer of other site, unstageable; L89.95 Pressure ulcer of unspecified site, unstageable; E11.9 Type 2 diabetes mellitus without complications; Z95.0 Presence of cardiac pacemaker; Z90.710 Acquired absence of both cervix and uterus; Z79.84 Long term (current) use of oral hypoglycemic drugs; Z79.899 Other long term (current) drug therapy; Y83.8 Other surgical procedures as the cause of abnormal reaction of the patient, or of later complication, without mention of misadventure at the time of the procedure ==

== ENCOUNTER → 2023-10-24 | Outpatient (CLI) | payer OTHER | END | disposition home or self-care (01) | LOC: WOUNDCARE 00:08 | PROVIDERS: ATTEND Nurse Practitioner Family | DX: T81.30XD Disruption of wound, unspecified, subsequent encounter (principal); L89.890 Pressure ulcer of other site, unstageable; L89.95 Pressure ulcer of unspecified site, unstageable; E11.9 Type 2 diabetes mellitus without complications; Z95.0 Presence of cardiac pacemaker; Z90.710 Acquired absence of both cervix and uterus; Z79.84 Long term (current) use of oral hypoglycemic drugs; Z79.899 Other long term (current) drug therapy; Y83.8 Other surgical procedures as the cause of abnormal reaction of the patient, or of later complication, without mention of misadventure at the time of the procedure ==

== ENCOUNTER → 2023-11-02 | Outpatient (CLI) | payer OTHER | END | disposition home or self-care (01) | LOC: WOUNDCARE 01:19 | PROVIDERS: ATTEND Nurse Practitioner Family | DX: T81.30XD Disruption of wound, unspecified, subsequent encounter (principal); L89.893 Pressure ulcer of other site, stage 3; L89.95 Pressure ulcer of unspecified site, unstageable; E11.9 Type 2 diabetes mellitus without complications; Z95.0 Presence of cardiac pacemaker; Z90.710 Acquired absence of both cervix and uterus; Z79.84 Long term (current) use of oral hypoglycemic drugs; Z79.899 Other long term (current) drug therapy; Y83.8 Other surgical procedures as the cause of abnormal reaction of the patient, or of later complication, without mention of misadventure at the time of the procedure ==

== ENCOUNTER → 2023-11-09 | Outpatient (CLI) | payer OTHER | END | disposition home or self-care (01) | LOC: WOUNDCARE 03:05 | PROVIDERS: ATTEND Nurse Practitioner Family | DX: T81.30XD Disruption of wound, unspecified, subsequent encounter (principal); L89.893 Pressure ulcer of other site, stage 3; L89.95 Pressure ulcer of unspecified site, unstageable; E11.9 Type 2 diabetes mellitus without complications; Z95.0 Presence of cardiac pacemaker; Z90.49 Acquired absence of other specified parts of digestive tract; Z90.710 Acquired absence of both cervix and uterus; Z79.84 Long term (current) use of oral hypoglycemic drugs; Z79.899 Other long term (current) drug therapy; Y83.8 Other surgical procedures as the cause of abnormal reaction of the patient, or of later complication, without mention of misadventure at the time of the procedure ==

== ENCOUNTER → 2023-11-16 | Outpatient (CLI) | payer OTHER | END | disposition home or self-care (01) | LOC: WOUNDCARE 01:56 | PROVIDERS: ATTEND Nurse Practitioner Family | DX: T81.30XD Disruption of wound, unspecified, subsequent encounter (principal); L89.893 Pressure ulcer of other site, stage 3; L89.95 Pressure ulcer of unspecified site, unstageable; E11.9 Type 2 diabetes mellitus without complications; Z95.0 Presence of cardiac pacemaker; Z90.49 Acquired absence of other specified parts of digestive tract; Z90.710 Acquired absence of both cervix and uterus; Z79.84 Long term (current) use of oral hypoglycemic drugs; Z79.899 Other long term (current) drug therapy; Y83.8 Other surgical procedures as the cause of abnormal reaction of the patient, or of later complication, without mention of misadventure at the time of the procedure ==

== ENCOUNTER 2023-11-23 13:20 | Inpatient (IN) | payer OTHER ==
[~2023-11-23] VITALS: Ht 157.5 cm; Wt 115.9 kg
[2023-11-23 13:25] VITALS: BP 125/81
[2023-11-23 14:04] LABS: BASO # 0.1 10*3/uL (0.0-0.1); BASO % 0.7 % (0.0-1.0); EOS # 0.3 10*3/uL (0.0-0.4); EOS % 2.5 % (1.0-4.0); LYMPH # 1.5 10*3/uL (1.3-4.4); LYMPH % 14.4 % (27.0-41.0); MEAN CORPUSCULAR HGB CONC 32.3 g/dl (33.0-37.0); MEAN PLATELET VOLUME 9.5 fl (9.6-12.3); MONO # 0.6 10*3/uL (0.1-1.0); MONO % 5.4 % (3.0-9.0); NEUT % 76.5 % (47.0-73.0); PLATELET COUNT AUTOMATED 250 10*3/uL (130-400); RED CELL DISTRI WIDTH 14.3 % (0-14.5); WHITE BLOOD COUNT 10.5 10*3/uL (4.8-10.8)
[2023-11-23 14:17] LABS: ACT PARTIAL THROMBO TIME 25.4 SECONDS (20.0-32.1)
[2023-11-23 14:25] LABS: POTASSIUM 3.5 mmol/L (3.4-5.1); TOTAL PROTEIN 7.1 gm/dL (6.0-8.0)
[2023-11-23 15:10] LABS: BILIRUBIN Negative (Negative); BLOOD Negative (Negative); CLARITY Clear (Clear); COLOR Yellow (Yellow); GLUCOSE 3+ (Negative); KETONE Negative (Negative); LEUKO ESTERASE Negative (Negative); NITRITE Negative (Negative); PH 6.5 (4.5-8.0); SPECIFIC GRAVITY 1.025 (1.001-1.030)
[2023-11-23 15:21] LABS: BACTERIA 2+
[2023-11-23] MEDS ORDERED: ACETAMINOPHEN 325 MG TAB PO ONE (15:35)
[2023-11-23] MEDS ORDERED: SODIUM CHLORIDE 0.9% 1,000 ML IV ONE (16:25)
[2023-11-23] MEDS ORDERED: LOSARTAN POTASS50 M1 PO (16:44)
[2023-11-23] MEDS ORDERED: OLANZAPINE15 M2 PO (16:46)
[2023-11-23] MEDS ORDERED: ASMANEX220 MC5 INH (16:47)
[2023-11-23] MEDS ORDERED: SODIUM CHLORIDE 0.9% 1,000 ML IV SCH (19:00)
[2023-11-23] MEDS ORDERED: ALPRAZolam 0.5 MG TAB PO PRN (19:25)
[2023-11-23] MEDS ORDERED: Albuterol Sulf/Ipratropium 3 ML VIAL NEB SCH (19:35)
[2023-11-23] MEDS ORDERED: BUDESONIDE 0.5 MG AMP NEB SCH (19:50)
[2023-11-23 20:01] VITALS: BP 120/62
[2023-11-23] MEDS ORDERED: HYDROmorphONE Hydrochloride 0.5 MG/0.5 ML SYRINGE IV PRN (20:10)
[2023-11-23] MEDS ORDERED: CARVEDILOL 12.5 MG TAB PO SCH (22:00)
[2023-11-23] MEDS ORDERED: LITHIUM CARBONATE 300 MG CAP PO SCH (22:00)
[2023-11-23] MEDS ORDERED: Paroxetine Hydrochloride 10 MG TAB PO SCH (22:00)
[2023-11-23 22:15] VITALS: BP 148/75
[2023-11-24] VITALS (7 sets, daily range): BP systolic 95–137; BP diastolic 56–83
[2023-11-24 06:15] LABS: BASO # 0.1 10*3/uL (0.0-0.1); BASO % 0.6 % (0.0-1.0); EOS # 0.3 10*3/uL (0.0-0.4); EOS % 3.3 % (1.0-4.0); HEMATOCRIT 36.2 % (37.0-47.0); LYMPH # 2.3 10*3/uL (1.3-4.4); LYMPH % 23.9 % (27.0-41.0); MEAN CELL VOLUME 86.2 fl (81.0-99.0); MEAN CORPUSCULAR HGB 28.6 pg (27.0-31.0); MEAN CORPUSCULAR HGB CONC 33.1 g/dl (33.0-37.0); MEAN PLATELET VOLUME 9.3 fl (9.6-12.3); MONO # 0.7 10*3/uL (0.1-1.0); MONO % 7.6 % (3.0-9.0); NEUT # 6.1 10*3/uL (2.3-7.9); NEUT % 64.3 % (47.0-73.0); PLATELET COUNT AUTOMATED 230 10*3/uL (130-400); RED CELL DISTRI WIDTH 14.6 % (0-14.5); WHITE BLOOD COUNT 9.5 10*3/uL (4.8-10.8)
[2023-11-24 06:40] LABS: POTASSIUM 3.1 mmol/L (3.4-5.1); TOTAL PROTEIN 6.3 gm/dL (6.0-8.0)
[2023-11-24] MEDS ORDERED: OLANZAPINE 7.5 MG TAB PO SCH (10:00)
[2023-11-24] MEDS ORDERED: ATORVASTATIN CALCIUM 40 MG TABLET PO SCH (10:00)
[2023-11-24] MEDS ORDERED: MOMETASONE FUROATE 220 MCG INH SCH (10:00)
[2023-11-24] MEDS ORDERED: LAMOTRIGINE 100 MG TAB PO SCH (10:00)
[2023-11-24] MEDS ORDERED: Cholecalciferol 5,000 IU CAP (125 MCG) PO SCH (10:00)
[2023-11-24] MEDS ORDERED: Enoxaparin Sodium 40 MG/0.4 ML SYR SC SCH (10:00)
[2023-11-24] MEDS ORDERED: Losartan Potassium 50 MG TAB PO SCH (10:00)
[2023-11-24] MEDS ORDERED: POTASSIUM CHLORIDE 20 MEQ TAB PO ONE (18:00)
[2023-11-25] VITALS: BP 105/50
[2023-11-25 06:51] LABS: BASO # 0.1 10*3/uL (0.0-0.1); BASO % 0.9 % (0.0-1.0); EOS # 0.3 10*3/uL (0.0-0.4); EOS % 3.6 % (1.0-4.0); HEMATOCRIT 38.5 % (37.0-47.0); LYMPH # 2.3 10*3/uL (1.3-4.4); LYMPH % 25.7 % (27.0-41.0); MEAN CELL VOLUME 87.3 fl (81.0-99.0); MEAN CORPUSCULAR HGB 28.1 pg (27.0-31.0); MEAN CORPUSCULAR HGB CONC 32.2 g/dl (33.0-37.0); MEAN PLATELET VOLUME 9.5 fl (9.6-12.3); MONO # 0.6 10*3/uL (0.1-1.0); MONO % 6.8 % (3.0-9.0); NEUT # 5.7 10*3/uL (2.3-7.9); NEUT % 62.7 % (47.0-73.0); PLATELET COUNT AUTOMATED 242 10*3/uL (130-400); RED BLOOD COUNT 4.41 10*6/uL (4.10-5.10); RED CELL DISTRI WIDTH 14.6 % (0-14.5); WHITE BLOOD COUNT 9.1 10*3/uL (4.8-10.8)
[2023-11-25 08:00] VITALS: BP 141/71
[2023-11-25 08:20] LABS: POTASSIUM 3.9 mmol/L (3.4-5.1); TOTAL PROTEIN 6.6 gm/dL (6.0-8.0)
[2023-11-25] MEDS ORDERED: FOAM BANDAGE 5X5 T ONE (11:28)
[2023-11-25] MEDS ORDERED: LEPTOSPERMUM HONEY 0.5 OZ TUBE T ONE (11:28)
[2023-11-25 12:00] VITALS: BP 118/51
[2023-11-25 16:00] VITALS: BP 119/61
[2023-11-25] MEDS ORDERED: Sennosides A and B 8.6 MG TAB PO PRN (18:05)
[2023-11-25 20:00] VITALS: BP 147/83
[2023-11-26 00:20] VITALS: BP 144/76
[2023-11-26 04:00] VITALS: BP 144/76
[2023-11-26 08:00] VITALS: BP 123/57
[2023-11-26 12:00] VITALS: BP 135/74
[2023-11-26 16:00] VITALS: BP 133/64
[2023-11-26 20:00] VITALS: BP 146/78
[2023-11-27] VITALS: BP 114/53
[2023-11-27 06:46] LABS: BASO # 0.1 10*3/uL (0.0-0.1); BASO % 0.6 % (0.0-1.0); EOS # 0.3 10*3/uL (0.0-0.4); EOS % 3.8 % (1.0-4.0); HEMATOCRIT 36.7 % (37.0-47.0); LYMPH # 2.1 10*3/uL (1.3-4.4); LYMPH % 25.4 % (27.0-41.0); MEAN CELL VOLUME 89.7 fl (81.0-99.0); MEAN CORPUSCULAR HGB 27.6 pg (27.0-31.0); MEAN CORPUSCULAR HGB CONC 30.8 g/dl (33.0-37.0); MEAN PLATELET VOLUME 9.6 fl (9.6-12.3); MONO # 0.6 10*3/uL (0.1-1.0); MONO % 6.6 % (3.0-9.0); NEUT # 5.3 10*3/uL (2.3-7.9); NEUT % 62.9 % (47.0-73.0); PLATELET COUNT AUTOMATED 257 10*3/uL (130-400); RED BLOOD COUNT 4.09 10*6/uL (4.10-5.10); RED CELL DISTRI WIDTH 14.7 % (0-14.5); WHITE BLOOD COUNT 8.4 10*3/uL (4.8-10.8)
[2023-11-27 07:16] LABS: POTASSIUM 4.5 mmol/L (3.4-5.1); TOTAL PROTEIN 5.9 gm/dL (6.0-8.0)
[2023-11-27 08:00] VITALS: BP 120/58
[2023-11-27 12:00] VITALS: BP 138/67
[2023-11-27 16:00] VITALS: BP 115/52
== END 2023-11-27 17:30 | disposition home or self-care (01) | DRG 422 ==
LOC: ED 13:20 → EDHOLD 16:44 → 4E 16:44
PROVIDERS: Emergency Medicine; ADMIT Internal Medicine; ATTEND Internal Medicine
DX: E86.0 Dehydration (principal); E44.1 Mild protein-calorie malnutrition; N17.9 Acute kidney failure, unspecified; I42.9 Cardiomyopathy, unspecified; L89.893 Pressure ulcer of other site, stage 3; I13.0 Hypertensive heart and chronic kidney disease with heart failure and stage 1 through stage 4 chronic kidney disease, or unspecified chronic kidney disease; K21.9 Gastro-esophageal reflux disease without esophagitis; E55.9 Vitamin D deficiency, unspecified; J44.9 Chronic obstructive pulmonary disease, unspecified; F31.9 Bipolar disorder, unspecified; I50.9 Heart failure, unspecified; K76.0 Fatty (change of) liver, not elsewhere classified; R41.840 Attention and concentration deficit; U09.9 Post COVID-19 condition, unspecified; N18.30 Chronic kidney disease, stage 3 unspecified; E11.22 Type 2 diabetes mellitus with diabetic chronic kidney disease; K57.30 Diverticulosis of large intestine without perforation or abscess without bleeding; J45.909 Unspecified asthma, uncomplicated; E11.69 Type 2 diabetes mellitus with other specified complication; E66.01 Morbid (severe) obesity due to excess calories; I25.2 Old myocardial infarction; Z98.891 History of uterine scar from previous surgery; Z79.899 Other long term (current) drug therapy; Z79.01 Long term (current) use of anticoagulants; Z79.2 Long term (current) use of antibiotics; Z88.8 Allergy status to other drugs, medicaments and biological substances; Z91.09 Other allergy status, other than to drugs and biological substances; Z90.710 Acquired absence of both cervix and uterus; Z95.0 Presence of cardiac pacemaker; Z83.3 Family history of diabetes mellitus; Z83.438 Family history of other disorder of lipoprotein metabolism and other lipidemia; Z82.49 Family history of ischemic heart disease and other diseases of the circulatory system; Z82.3 Family history of stroke; Z82.5 Family history of asthma and other chronic lower respiratory diseases; Z80.41 Family history of malignant neoplasm of ovary; Z68.42 Body mass index [BMI] 45.0-49.9, adult; Z88.1 Allergy status to other antibiotic agents

== ENCOUNTER → 2023-11-30 | Outpatient (CLI) | payer OTHER ==
[~2023-11-30] MED LIST changes: +ASMANEX220 MC5 INH; +LOSARTAN POTASS50 M1 PO; +OLANZAPINE15 M2 PO
== END | disposition home or self-care (01) ==
LOC: WOUNDCARE 02:46
PROVIDERS: ATTEND Nurse Practitioner Family
DX: T81.30XD Disruption of wound, unspecified, subsequent encounter (principal); L89.893 Pressure ulcer of other site, stage 3; L89.95 Pressure ulcer of unspecified site, unstageable; E11.9 Type 2 diabetes mellitus without complications; Z95.0 Presence of cardiac pacemaker; Z90.49 Acquired absence of other specified parts of digestive tract; Z90.710 Acquired absence of both cervix and uterus; Z79.84 Long term (current) use of oral hypoglycemic drugs; Z79.899 Other long term (current) drug therapy; Y83.8 Other surgical procedures as the cause of abnormal reaction of the patient, or of later complication, without mention of misadventure at the time of the procedure

== ENCOUNTER 2023-12-02 23:46 | Inpatient (IN) | payer OTHER ==
[~2023-12-02] VITALS: Ht 152.4 cm; Wt 115.6 kg
[2023-12-02 23:54] VITALS: BP 129/83
[2023-12-03] VITALS (7 sets, daily range): BP systolic 114–132; BP diastolic 55–79
[2023-12-03] MEDS ORDERED: diphenhydrAMINE hydrochloride 50 MG/ML VIAL IV ONE (00:10)
[2023-12-03] MEDS ORDERED: SODIUM CHLORIDE 0.9% 1,000 ML IV ONE (00:10)
[2023-12-03] MEDS ORDERED: Metoclopramide Hydrochloride 10 MG/2 ML AMP IV ONE ×2 (00:10→05:50)
[2023-12-03 00:30] LABS: BASO % 0.3 % (0.0-1.0); EOS # 0.3 10*3/uL (0.0-0.4); HEMATOCRIT 42.9 % (37.0-47.0); LYMPH # 1.9 10*3/uL (1.3-4.4); LYMPH % 14.9 % (27.0-41.0); MEAN CELL VOLUME 87.4 fl (81.0-99.0); MEAN CORPUSCULAR HGB 27.9 pg (27.0-31.0); MEAN CORPUSCULAR HGB CONC 31.9 g/dl (33.0-37.0); MEAN PLATELET VOLUME 8.9 fl (9.6-12.3); MONO # 0.9 10*3/uL (0.1-1.0); MONO % 6.5 % (3.0-9.0); NEUT # 9.9 10*3/uL (2.3-7.9); NEUT % 75.9 % (47.0-73.0); PLATELET COUNT AUTOMATED 286 10*3/uL (130-400); RED BLOOD COUNT 4.91 10*6/uL (4.10-5.10); RED CELL DISTRI WIDTH 14.7 % (0-14.5); WHITE BLOOD COUNT 13.1 10*3/uL (4.8-10.8)
[2023-12-03 00:58] LABS: ALKALINE PHOSPHATASE 82 U/L (46-116); BUN 16 mg/dl (9-23); CHLORIDE 106 mmol/L (98-107); LIPASE 63 U/L (12-53); POTASSIUM 3.4 mmol/L (3.4-5.1); SGPT/ALT 22 U/L (5-49); TOTAL PROTEIN 7.2 gm/dL (6.0-8.0)
[2023-12-03 00:59] LABS: ETHYL ALCOHOL < 3.0 mg/dl (<3)
[2023-12-03 01:19] LABS: BILIRUBIN Negative (Negative); BLOOD Negative (Negative); CLARITY Clear (Clear); COLOR Yellow (Yellow); GLUCOSE 3+ (Negative); KETONE Negative (Negative); LEUKO ESTERASE Negative (Negative); NITRITE Negative (Negative)
[2023-12-03 01:26] LABS: URINE AMPHETAMINES Negative (1000ng/ml); URINE BARBITURATES Negative (200ng/ml); URINE BENZODIAZEPINES Positive (200ng/ml); URINE CANNABINOIDS (THC) Negative (50ng/ml); URINE COCAINE Negative (300ng/ml); URINE METHADONE Negative (300ng/ml); URINE OPIATES Negative (300ng/ml); URINE PHENCYCLIDINE Negative (25ng/ml)
[2023-12-03 01:53] LABS: EPITHELIAL CELLS 16-20
[2023-12-03] MEDS ORDERED: Ondansetron Hydrochloride 4 MG/2 ML VIAL IV PRN (08:45)
[2023-12-03] MEDS ORDERED: SODIUM CHLORIDE 0.9% 1,000 ML IV SCH (13:45)
[2023-12-03] MEDS ORDERED: ALPRAZolam 0.5 MG TAB PO PRN (14:55)
[2023-12-03] MEDS ORDERED: ZOLPIDEM TARTRATE 5 MG TAB PO PRN (22:00)
[2023-12-03] MEDS ORDERED: Paroxetine Hydrochloride 10 MG TAB PO SCH (22:00)
[2023-12-03] MEDS ORDERED: CARVEDILOL 12.5 MG TAB PO SCH (22:00)
[2023-12-03] MEDS ORDERED: LITHIUM CARBONATE 300 MG CAP PO SCH (22:00)
[2023-12-04 00:27] VITALS: BP 127/73
[2023-12-04] MEDS ORDERED: ACETAMINOPHEN 325 MG TAB PO ONE (01:10)
[2023-12-04 06:59] VITALS: BP 110/62
[2023-12-04] MEDS ORDERED: LAMOTRIGINE 100 MG TAB PO SCH (10:00)
[2023-12-04] MEDS ORDERED: OLANZAPINE 7.5 MG TAB PO SCH (10:00)
[2023-12-04] MEDS ORDERED: ATORVASTATIN CALCIUM 40 MG TABLET PO SCH (10:00)
[2023-12-04 16:45] VITALS: BP 153/74
[2023-12-04] MEDS ORDERED: Ketorolac Tromethamine 30 MG/ML VIAL IV PRN (18:20)
[2023-12-04 20:00] VITALS: BP 141/78
[2023-12-05] VITALS: BP 122/71
[2023-12-05 08:00] VITALS: BP 145/82
[2023-12-05] MEDS ORDERED: SINCALIDE 2.2 MCG in SODIUM CHLORIDE 0.9% 50 ML IV STA (11:50)
[2023-12-05 16:00] VITALS: BP 106/59
[2023-12-05 20:00] VITALS: BP 133/72
[2023-12-06] VITALS: BP 132/72
[2023-12-06 06:25] LABS: BASO % 0.4 % (0.0-1.0); EOS # 0.5 10*3/uL (0.0-0.4); EOS % 5.7 % (1.0-4.0); HEMATOCRIT 37.2 % (37.0-47.0); LYMPH # 2.1 10*3/uL (1.3-4.4); LYMPH % 22.9 % (27.0-41.0); MEAN CELL VOLUME 89.6 fl (81.0-99.0); MEAN CORPUSCULAR HGB 28.4 pg (27.0-31.0); MEAN CORPUSCULAR HGB CONC 31.7 g/dl (33.0-37.0); MEAN PLATELET VOLUME 9.6 fl (9.6-12.3); MONO # 0.7 10*3/uL (0.1-1.0); MONO % 7.4 % (3.0-9.0); NEUT # 5.8 10*3/uL (2.3-7.9); NEUT % 63.2 % (47.0-73.0); PLATELET COUNT AUTOMATED 238 10*3/uL (130-400); RED BLOOD COUNT 4.15 10*6/uL (4.10-5.10); RED CELL DISTRI WIDTH 14.6 % (0-14.5); WHITE BLOOD COUNT 9.3 10*3/uL (4.8-10.8)
[2023-12-06 06:27] LABS: POTASSIUM 4.3 mmol/L (3.4-5.1); TOTAL PROTEIN 6.1 gm/dL (6.0-8.0)
[2023-12-06 08:00] VITALS: BP 134/81
[2023-12-06 12:00] VITALS: BP 124/61
== END 2023-12-06 14:00 | disposition home or self-care (01) | DRG 244 ==
LOC: ED 23:46 → EDHOLD 12-03 02:12 → 4E 12-03 02:12 → EDHOLD 12-03 14:56 → 4E 12-03 17:20 → EDHOLD 12-03 19:13 → 4E 12-04 15:11
PROVIDERS: Internal Medicine; ADMIT Internal Medicine; ATTEND Internal Medicine
DX: K57.30 Diverticulosis of large intestine without perforation or abscess without bleeding (principal); E86.0 Dehydration; R41.840 Attention and concentration deficit; U09.9 Post COVID-19 condition, unspecified; R26.2 Difficulty in walking, not elsewhere classified; K21.9 Gastro-esophageal reflux disease without esophagitis; E61.1 Iron deficiency; I50.9 Heart failure, unspecified; F32.A Depression, unspecified; F41.9 Anxiety disorder, unspecified; E78.5 Hyperlipidemia, unspecified; Z88.8 Allergy status to other drugs, medicaments and biological substances; Z98.891 History of uterine scar from previous surgery; Z82.49 Family history of ischemic heart disease and other diseases of the circulatory system; Z80.41 Family history of malignant neoplasm of ovary; Z83.6 Family history of other diseases of the respiratory system; Z83.3 Family history of diabetes mellitus; Z90.710 Acquired absence of both cervix and uterus; Z95.810 Presence of automatic (implantable) cardiac defibrillator

== ENCOUNTER → 2024-01-08 | Outpatient (CLI) | payer OTHER | END | disposition home or self-care (01) | LOC: NM 02:14 | PROVIDERS: ATTEND Internal Medicine | DX: J44.9 Chronic obstructive pulmonary disease, unspecified (principal); E11.65 Type 2 diabetes mellitus with hyperglycemia; R10.13 Epigastric pain ==

== ENCOUNTER → 2024-02-09 | Outpatient (CLI) | payer OTHER | END | disposition home or self-care (01) | LOC: LAB 10:27 | PROVIDERS: ATTEND Nurse Practitioner Family | DX: Z79.899 Other long term (current) drug therapy (principal) ==

== ENCOUNTER → 2024-03-19 | Outpatient (CLI) | payer OTHER ==
[2024-03-19 09:06] LABS: BASO # 0.1 10*3/uL (0.0-0.1); BASO % 1.1 % (0.0-1.0); BILIRUBIN Negative (Negative); BLOOD Negative (Negative); CLARITY Clear (Clear); COLOR Yellow (Yellow); EOS # 0.7 10*3/uL (0.0-0.4); EOS % 5.7 % (1.0-4.0); GLUCOSE Negative (Negative); HEMATOCRIT 42.2 % (37.0-47.0); KETONE Negative (Negative); LEUKO ESTERASE Negative (Negative); MEAN CELL VOLUME 91.7 fl (81.0-99.0); MEAN CORPUSCULAR HGB 28.7 pg (27.0-31.0); MEAN CORPUSCULAR HGB CONC 31.3 g/dl (33.0-37.0); MEAN PLATELET VOLUME 9.2 fl (9.6-12.3); MONO # 0.7 10*3/uL (0.1-1.0); MONO % 6.1 % (3.0-9.0); NEUT # 7.7 10*3/uL (2.3-7.9); NITRITE Negative (Negative); PH 6.5 (4.5-8.0); PLATELET COUNT AUTOMATED 278 10*3/uL (130-400); RED CELL DISTRI WIDTH 13.7 % (0-14.5); SPECIFIC GRAVITY 1.015 (1.001-1.030); UROBILINOGEN 0.2 E.U./dl (0.0-1.0); WHITE BLOOD COUNT 11.4 10*3/uL (4.8-10.8)
[2024-03-19 09:31] LABS: POTASSIUM 3.9 mmol/L (3.4-5.1); TOTAL PROTEIN 7.3 gm/dL (6.0-8.0)
[2024-03-19 09:52] LABS: VITAMIN D, 25-HYDROXY 46.3 ng/mL (30-100)
[2024-03-19 13:17] LABS: BACTERIA 2+; EPITHELIAL CELLS 16-20
== END | disposition home or self-care (01) ==
LOC: LAB 08:42
PROVIDERS: ATTEND Internal Medicine Nephrology
DX: E11.22 Type 2 diabetes mellitus with diabetic chronic kidney disease (principal); N18.32 Chronic kidney disease, stage 3b; E83.9 Disorder of mineral metabolism, unspecified

== ENCOUNTER 2024-09-03 21:55 | Emergency (ER) | payer OTHER ==
[~2024-09-03] VITALS: Ht 157.4 cm; Wt 108.0 kg
[2024-09-03 22:12] VITALS: BP 113/61
[2024-09-03 22:54] LABS: BASO # 0.1 10*3/uL (0.0-0.1); BASO % 0.8 % (0.0-1.0); EOS # 0.4 10*3/uL (0.0-0.4); EOS % 4.7 % (1.0-4.0); HEMATOCRIT 40.7 % (37.0-47.0); MEAN CELL VOLUME 92.3 fl (81.0-99.0); MEAN CORPUSCULAR HGB CONC 31.4 g/dl (33.0-37.0); MONO # 0.7 10*3/uL (0.1-1.0); MONO % 7.3 % (3.0-9.0); NEUT # 6.4 10*3/uL (2.3-7.9); NEUT % 68.3 % (47.0-73.0); PLATELET COUNT AUTOMATED 255 10*3/uL (130-400); RED BLOOD COUNT 4.41 10*6/uL (4.10-5.10); RED CELL DISTRI WIDTH 13.6 % (0-14.5); WHITE BLOOD COUNT 9.3 10*3/uL (4.8-10.8)
[2024-09-03 23:19] LABS: BILIRUBIN Negative (Negative); BLOOD Negative (Negative); CLARITY Clear (Clear); COLOR Yellow (Yellow); GLUCOSE 2+ (Negative); KETONE Negative (Negative); LEUKO ESTERASE Negative (Negative); NITRITE Negative (Negative); SPECIFIC GRAVITY <= 1.005 (1.001-1.030); UROBILINOGEN 0.2 E.U./dl (0.0-1.0)
[2024-09-03 23:19] LABS: POTASSIUM 3.7 mmol/L (3.4-5.1)
[2024-09-03 23:26] LABS: URINE AMPHETAMINES Negative (1000ng/ml); URINE BARBITURATES Negative (200ng/ml); URINE BENZODIAZEPINES Negative (200ng/ml); URINE CANNABINOIDS (THC) Negative (50ng/ml); URINE COCAINE Negative (300ng/ml); URINE METHADONE Negative (300ng/ml); URINE OPIATES Negative (300ng/ml); URINE PHENCYCLIDINE Negative (25ng/ml)
[2024-09-03 23:30] LABS: BACTERIA 1+
== END 2024-09-04 00:45 | disposition home or self-care (01) ==
LOC: ED 21:55
PROVIDERS: Internal Medicine
DX: R42 Dizziness and giddiness (principal); R53.1 Weakness; R53.83 Other fatigue; T50.905A Adverse effect of unspecified drugs, medicaments and biological substances, initial encounter; N18.32 Chronic kidney disease, stage 3b; I50.9 Heart failure, unspecified; J44.9 Chronic obstructive pulmonary disease, unspecified; J45.909 Unspecified asthma, uncomplicated; F41.9 Anxiety disorder, unspecified; Z79.899 Other long term (current) drug therapy; Z88.1 Allergy status to other antibiotic agents; Z88.8 Allergy status to other drugs, medicaments and biological substances; Z90.710 Acquired absence of both cervix and uterus; Z98.890 Other specified postprocedural states; Y92.89 Other specified places as the place of occurrence of the external cause

== ENCOUNTER → 2025-01-13 | Outpatient (CLI) | payer OTHER ==
[2025-01-13 09:47] LABS: BASO # 0.1 10*3/uL (0.0-0.1); BASO % 0.7 % (0.0-1.0); EOS # 0.3 10*3/uL (0.0-0.4); EOS % 3.4 % (1.0-4.0); MEAN CELL VOLUME 93.8 fl (81.0-99.0); MEAN CORPUSCULAR HGB 30.0 pg (27.0-31.0); MEAN PLATELET VOLUME 9.2 fl (9.6-12.3); MONO # 0.6 10*3/uL (0.1-1.0); MONO % 6.8 % (3.0-9.0); NEUT # 5.6 10*3/uL (2.3-7.9); NEUT % 64.8 % (47.0-73.0); NUCLEATED RED BLOOD CELL 0.0 % (0.0-0.0); NUCLEATED RED BLOOD CELL 0.0 10*3/uL (0.0-0.0); PLATELET COUNT AUTOMATED 276 10*3/uL (130-400); RED CELL DISTRI WIDTH 13.6 % (0-14.5)
[2025-01-13 10:29] LABS: BUN 12.0 mg/dl (9-23); FREE T4 1.04 ng/dl (0.89-1.76); SGPT/ALT 18.0 U/L (5-49); T3 UPTAKE 29.1 % (22.4-36.7)
== END | disposition home or self-care (01) ==
LOC: LAB 08:55
PROVIDERS: ATTEND Nurse Practitioner Family
DX: Z79.899 Other long term (current) drug therapy (principal)

== ENCOUNTER 2025-02-26 16:50 | Emergency (ER) | payer OTHER ==
[~2025-02-26] VITALS: Ht 157.4 cm; Wt 113.4 kg
[2025-02-26 17:07] VITALS: BP 134/75
[2025-02-26] MEDS ORDERED: IOHEXOL 300 MG/ML 100 ML VIAL IV ONE (17:30)
[2025-02-26 17:37] LABS: BILIRUBIN Negative (Negative); BLOOD Negative (Negative); CLARITY Clear (Clear); COLOR Yellow (Yellow); KETONE Negative (Negative); LEUKO ESTERASE Negative (Negative); NITRITE Negative (Negative); PH 6.5 (4.5-8.0); SPECIFIC GRAVITY 1.015 (1.001-1.030); UROBILINOGEN 1.0 E.U./dl (0.0-1.0)
[2025-02-26] MEDS ORDERED: Ondansetron Hydrochloride 4 MG/2 ML VIAL IV ONE (17:45)
[2025-02-26 17:46] LABS: BASO # 0.1 10*3/uL (0.0-0.1); BASO % 0.3 % (0.0-1.0); EOS # 0.3 10*3/uL (0.0-0.4); EOS % 1.7 % (1.0-4.0); MEAN CELL VOLUME 94.1 fl (81.0-99.0); MEAN CORPUSCULAR HGB 30.4 pg (27.0-31.0); MEAN PLATELET VOLUME 9.0 fl (9.6-12.3); MONO # 1.0 10*3/uL (0.1-1.0); MONO % 6.4 % (3.0-9.0); NEUT # 12.0 10*3/uL (2.3-7.9); NEUT % 80.3 % (47.0-73.0); NUCLEATED RED BLOOD CELL 0.0 % (0.0-0.0); NUCLEATED RED BLOOD CELL 0.0 10*3/uL (0.0-0.0); PLATELET COUNT AUTOMATED 258 10*3/uL (130-400); RED CELL DISTRI WIDTH 13.4 % (0-14.5)
[2025-02-26 17:59] LABS: MUCOUS TRACE; WBC 0-2 wbc/hpf (0-5)
[2025-02-26 18:06] LABS: BUN 20.0 mg/dl (9-23); SGPT/ALT 8.0 U/L (5-49)
[2025-02-26] MEDS ORDERED: SODIUM CHLORIDE 0.9% 1,000 ML IV ONE ×2 (18:15→19:30)
== END 2025-02-26 21:05 | disposition home or self-care (01) ==
LOC: ED 16:50
PROVIDERS: Student in an Organized Health Care Education/Training Program
DX: R10.32 Left lower quadrant pain (principal); E87.20 Acidosis, unspecified; D72.829 Elevated white blood cell count, unspecified; N18.32 Chronic kidney disease, stage 3b; I25.2 Old myocardial infarction; J45.909 Unspecified asthma, uncomplicated; F31.9 Bipolar disorder, unspecified; F41.9 Anxiety disorder, unspecified; E66.9 Obesity, unspecified; I50.9 Heart failure, unspecified; K76.0 Fatty (change of) liver, not elsewhere classified; Z98.890 Other specified postprocedural states; Z90.710 Acquired absence of both cervix and uterus; Z88.1 Allergy status to other antibiotic agents; Z88.8 Allergy status to other drugs, medicaments and biological substances